=== PATIENT | female | born 1985 | race Caucasian/White ===

== ENCOUNTER 2018-02-25 12:41 | Emergency (ER) | payer MEDICAID, SELFPAY ==
[2018-02-25] VITALS (29 sets, daily range): BP systolic 110–160; BP diastolic 63–100; PULSE 60–94; RESP 0–22; TEMP 37.2; O2SAT 95–99
[2018-02-25 13:53] LABS: Abs Immature Grans 0.01 k/cumm (0.0-0.09); Absolute Basophil Count 0.05 k/cumm (0.0-0.2); Absolute Eosinophil Count 0.38 k/cumm (0.0-0.7); Absolute Lymphocyte Count 3.29 k/cumm (1.2-3.4); Absolute Monocyte Count 0.63 k/cumm (0.11-0.7); Basophils % 0.6; Eosinophils % 4.7; HCT 40.3 % (36.0-46.0); HGB 14.1 g/dL (12.0-15.5); Immature Grans % 0.1; Lymphocytes % 40.3; Mean Corpuscular Hemoglobin 31.4 pg (27.0-33.0); Mean Corpuscular Volume 89.8 fL (80-95); Monocytes % 7.7; Neutrophils % 46.6; Platelet Count 232 x1000/uL (130-400); RBC 4.49 m/cumm (4.00-5.20); RBC Distribution Width 12.7 % (11.7-14.6); White Blood Cell Count 8.16 k/cumm (4.4-10.8)
[2018-02-25 14:09] LABS: ALT 22 U/L (12-78); AST 12 U/L (15-37); Albumin 3.8 g/dL (3.4-5.0); Alkaline Phosphatase 44 U/L (46-116); Anion Gap 5.5 mmol/L (3-11); BUN 11 mg/dL (7-18); Bilirubin, Total 0.3 mg/dL (0.2-1.0); CO2 25.5 mmol/L (21.0-32.0); CREATININE 0.75 mg/dL (0.55-1.02); Calcium 8.7 mg/dL (8.5-10.1); Chloride 107 mmol/L (98-107); Glucose 97 mg/dL (70-100); Magnesium 1.8 mg/dL (1.8-2.4); Potassium 3.5 mmol/L (3.5-5.1); Sodium 138 mmol/L (136-145); Total Protein 7.4 g/dL (6.4-8.2)
[2018-02-25 14:12] LABS: Troponin I < 0.02 ng/mL (0.00-0.06)
[2018-02-25 14:27] LABS: D-Dimer 353 ng/mlFEU (<500)
--- NOTE | 2018-02-25 15:07 | ED.GENADUL_ITS ---
Discharge Plan Discharge Details Chief Complaint: GenMedical Clinical Impression: Cervical strain, Strain of thoracic region, Chest wall muscle strain Primary Care Provider: Vera Singleton ED Provider: Rakel Brito Disposition Patient Disposition: HOME Home Meds and New Rx's Prescriptions: New diazepam [Valium] 5 mg tablet 5 mg PO TID PRN (Reason: muscle spasm) Qty: 10 RF: 0 Continue acetaminophen [Mapap Extra Strength] 500 MG tablet 500 mg PO PRN PRNRF: 0 aspirin 325 MG tablet 325 mg PO PRN PRNRF: 0 Ibuprofen [Ibuprofen Ib] 200 MG Tablet 400 mg PO PRN PRNRF: 0 propranolol 80 mg Capsule,Extended Release 24hr 80 mg PO DAILY RF: 0 Discharge Instructions Instructions: Cervical Strain (ED), Muscle Strain (ED) Additional Instructions: Alternate ice and heat several times daily for 20 minutes at a time. Take Motrin and Tylenol as needed and directed for pain. Take Valium for pain not relieved with Motrin or Tylenol. Do not drive after taking Valium as it can make you drowsy. Follow-up with primary care doctor in 1 week for reevaluation. Return to the emergency department with any worsening or new concerning symptoms. Discharge Data Discharge Date/Time-TO BE ENTERED AT DEPARTURE: 02/25/18 16:40 Discharge Physician: Rakel Brito Medical Decision Making MDM Narrative Medical decision making narrative: 32-year-old female who presents with bilateral shoulder pain for 3 years, worse over the past few days with radiation to her neck down into her upper back bilaterally and around to her left chest. 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 Pain worse with movement of her head and arms. She denies shortness of breath, dizziness, nausea or vomiting. Chest pain is only present with palpation or movement of her head or arms. No DVT or PE risk factors. She has a history of hysterectomy. She intermittently takes propranolol for hypertension, last dose 2 days ago. Vitals on arrival within normal limits. 1305 --EKG noted a rate of 90, sinus, incomplete right bundle branch block but no acute ST depression or elevation. No old EKG to compare. Her lungs are clear to auscultation. She has tenderness to palpation of her bilateral cervical spine, bilateral upper thoracic spine, bilateral trapezius and left anterior chest. There is no rash or evidence of trauma. She is neurovascularly intact. Based on patient's complaint and to expedite process in the ED, labs and chest x -ray ordered on arrival, reviewed and negative. Troponin negative. D-dimer negative. Chest x-ray negative. Patient's presentation appears consistent with acute on chronic musculoskeletal pain, worsened by frequent heavy lifting at work. Dose of Toradol ordered after evaluation and will reassess. Patient drove herself here and cannot get a ride home so we will hold on muscle relaxer dose here and patient is agreeable. 1615 --patient is requesting to leave. Patient feels better after Toradol. At this point as her symptoms have been present for 4 days, I do not see an indication to check a second troponin, and also her symptoms are resolving and she is requesting to leave. We will send home with a prescription for Valium. Patient was instructed to alternate ice and heat, take NSAIDs, and take Valium as needed and directed. She is requesting work note to return to work as she cannot take any time off. She is switching her primary care doctor to her previous primary care doctor in [place]. She is instructed to follow-up with him in 1 week for reevaluation and return to the ER if worse per Lab Data Lab Results 02/25/18 02/25/18 02/25/18 Range/Units 13:20 13:20 13:43 WBC 8.16 (4.4-10.8) k/cumm RBC 4.49 (4.00-5.20) m/cumm Hgb 14.1 (12.0-15.5) g/dL Hct 40.3 (36.0-46.0) % MCV 89.8 (80-95) fL MCH 31.4 (27.0-33.0) pg MCHC 35.0 (32.0-36.0) g/dL RDW 12.7 (11.7-14.6) % Plt Count 232 (130-400) x1000/uL MPV 10.0 (8.0-11.0) fL Immature Gran % 0.1 Neutrophils % 46.6 Lymphocytes % 40.3 Monocytes % 7.7 Eosinophils % 4.7 Basophils % 0.6 Absolute Neutrophils 3.80 (1.2-6.7) k/cumm Absolute Lymphocytes 3.29 (1.2-3.4) k/cumm Absolute Monocytes 0.63 (0.11-0.7) k/cumm Absolute Eosinophils 0.38 (0.0-0.7) k/cumm Absolute Basophils 0.05 (0.0-0.2) k/cumm D-Dimer 353 (<500) ng/mlFEU Sodium 138 (136-145) mmol/L Potassium 3.5 (3.5-5.1) mmol/L Chloride 107 (98-107) mmol/L Carbon Dioxide 25.5 (21.0-32.0) mmol/L Anion Gap 5.5 (3-11) mmol/L BUN 11 (7-18) mg/dL Creatinine 0.75 (0.55-1.02) mg/dL Estimated GFR/1.73 m2 >= 60.00 (mL/min/1.73m2) Glucose 97 (70-100) mg/dL Calcium 8.7 (8.5-10.1) mg/dL Magnesium 1.8 (1.8-2.4) mg/dL Total Bilirubin 0.3 (0.2-1.0) mg/dL AST 12 L (15-37) U/L ALT 22 (12-78) U/L Alkaline Phosphatase 44 L (46-116) U/L Troponin I < 0.02 (0.00-0.06) ng/mL Total Protein 7.4 (6.4-8.2) g/dL Albumin 3.8 (3.4-5.0) g/dL HPI - General Adult General Mode of arrival: ambulatory . Date/Time Provider Initiated Documentation: 02/25/18 13:14 . Limitations to Documentation: no limitations . Information obtained by: patient . HPI Narrative: Patient is a 33-year-old female who presents with bilateral shoulder pain for 3 years, worse over the past 4 days and associated with neck pain and radiation around to chest. 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 Patient states her neck and upper back pain and bilateral shoulder pain is worse with head movement and specifically to the left side. Patient has been taking Tylenol and Motrin for pain without relief. Last dose 2 days ago. Patient denies difficulty breathing, dizziness, nausea, vomiting. She denies recent travel, recent surgery, leg pain or swelling or oral contraceptive use. She has a history of hysterectomy. Related Data Home Medications Medication Instructions Recorded Confirmed acetaminophen [Mapap Extra 500 mg PO PRN PRN 08/03/13 02/25/18 Strength] Ibuprofen [Ibuprofen Ib] 400 mg PO PRN PRN 12/30/17 02/25/18 aspirin 325 mg PO PRN PRN 12/30/17 02/25/18 propranolol 80 mg PO DAILY 02/25/18 02/25/18 Previous Rx's Medication Instructions Recorded diazepam [Valium] 5 mg PO TID PRN #10 tab 02/25/18 Allergies Allergy/AdvReac Type Severity Reaction Status Date / Time Penicillins Allergy rash/hives Unverified 02/25/18 14:05 gabapentin AdvReac Unverified 02/25/18 14:05 lithium AdvReac Unverified 02/25/18 14:05 General Stated Complaint: GenMedical PIA: 3 Review of Systems Constitutional Denies fever(s) and Denies weakness Eyes Patient Denies blurry vision and denies ENT Denies vertigo, Denies dizziness, Denies sore throat and Denies throat swelling Cardiovascular Denies chest pain at rest, Reports chest pain with activity, Denies diaphoresis , Denies syncope, Denies rapid heart rate and Denies dyspnea Respiratory Denies cough, Denies pain on inspiration and Denies dyspnea Gastrointestinal Denies abdominal pain, Denies diarrhea and Denies vomiting Genitourinary Denies hematuria, Denies dysuria and Denies flank pain Musculoskeletal Denies arthralgias and Denies joint swelling Neurologic Denies behavioral changes, Denies confusion, Denies vertigo, Denies dizziness, Denies syncope, Denies focal weakness and Denies weakness Psychiatric Denies behavioral changes and Denies confusion Allergic/Immunologic Denies throat swelling PFSH Family History Father Diabetes Heart disease Hyperlipidemia Mental disorder Grandmother Diabetes Sister Mental disorder Medical History Abnormal Pap smear Constipation Depression Headache Hypertension Tobacco use Social History Smoking/Tobacco Use Status: Former Tobacco Use Surgical History Ligation of fallopian tube Exam Const General: cooperative, healthy appearing and well hydrated Nutritional Appearance: average body habitus Orientation: alert and awake [facility] Head: normal to inspection Ears: hearing grossly normal bilaterally General nose exam: external nose normal Mouth: moist mucous membranes Eyes Eyelids: eyelids normal Pupils: PERRL EOM: EOM intact bilaterally Neck Neck: normal visual inspection Chest Chest: normal inspection of the chest and tenderness (L anterior chest) Chest/axillae images: 2 1. localized area of tenderness. No rash, lesions, abrasions Resp Effort & Inspection: normal respiratory effort, able to speak in complete sentences, normal respiratory pattern, no audible wheezes, no cough and no respiratory distress Auscultation: clear to auscultation bilaterally Cardio Rate: regular rate Rhythm: regular rhythm Heart Sounds: no murmurs GI Inspection: normal to inspection and obesity Palpation: nontender Auscultation: normal bowel sounds Back/Spine/Pelvis Back: back tenderness (Tenderness to palpation bilateral trapezius and bilateral paraspinal thoracic region.) Cervical Spine: cervical muscular tenderness (Bilateral paraspinal) and pain with cervical ROM Thoracic/Lumbar Spine: thoracic and lumbar spine normal to inspection Skin General skin exam: no rashes or lesions noted Neuro General: alert, awake and no meningeal signs Cognition: normal cognition Speech: speech normal Motor: muscle tone normal throughout Sensory Exam: no sensory deficits noted Extrem General: normal to inspection, full ROM and no edema Psych Appearance: grossly normal Mental Status: mental status grossly normal Speech and Movement: speech and movement normal Attitude: cooperative Thought Process: normal Course Vital Signs Temperature 99.0 F 02/25/18 12:52 Pulse 94 H 02/25/18 12:52 Respiratory Rate 16 02/25/18 12:52 Blood Pressure 160/95 H 02/25/18 12:52 Pulse Oximetry 99 02/25/18 12:52 Temperature 99.0 F 02/25/18 12:52 Pulse 94 H 02/25/18 12:52 Respiratory Rate 16 02/25/18 14:55 Blood Pressure 160/95 H 02/25/18 12:52 Pulse Oximetry 99 02/25/18 12:52 Lab/Test Results Lab/Test Results: Laboratory Tests 02/25/18 02/25/18 02/25/18 13:20 13:20 13:43 WBC 8.16 RBC 4.49 Hgb 14.1 Hct 40.3 MCV 89.8 MCH 31.4 MCHC 35.0 RDW 12.7 Plt Count 232 MPV 10.0 Immature Gran % 0.1 Neutrophils % 46.6 Lymphocytes % 40.3 Monocytes % 7.7 Eosinophils % 4.7 Basophils % 0.6 Absolute Neutrophils 3.80 Absolute Lymphocytes 3.29 Absolute Monocytes 0.63 Absolute Eosinophils 0.38 Absolute Basophils 0.05 D-Dimer 353 Sodium 138 Potassium 3.5 Chloride 107 Carbon Dioxide 25.5 Anion Gap 5.5 BUN 11 Creatinine 0.75 Estimated GFR/1.73 m2 >= 60.00 Glucose 97 Calcium 8.7 Magnesium 1.8 Total Bilirubin 0.3 AST 12 L ALT 22 Alkaline Phosphatase 44 L Troponin I < 0.02 Total Protein 7.4 Albumin 3.8
--- NOTE | 2018-02-25 15:08 | DI.RAD_ITS ---
SYMPTOMS/DIAGNOSIS: CHEST PAIN X 1 WEEK CHEST X-RAY, PA AND LATERAL: Comparison is 10/17/17. The heart size and pulmonary vasculature are within normal limits. The lungs are clear and well expanded. No effusions or pneumothoraces are identified. The bones appear intact. IMPRESSION: No acute pulmonary process.
[2018-02-25] MEDS: Ketorolac 60 MG/2 ML VIAL IM (15:48)
== END 2018-02-25 16:40 | disposition home or self-care (01) ==
PROVIDERS: Emergency Provider Physician Assistant; PCP Nurse Practitioner Family
DX: S16.1XXA Strain of muscle, fascia and tendon at neck level, initial encounter (principal); S29.011A Strain of muscle and tendon of front wall of thorax, initial encounter; S29.012A Strain of muscle and tendon of back wall of thorax, initial encounter; X50.3XXA Overexertion from repetitive movements, initial encounter; Y99.0 Civilian activity done for income or pay; G89.29 Other chronic pain; I10 Essential (primary) hypertension
CPT/HCPCS: 36415; 80053; 93005; 96372; 99285; 71046; 83735; 84484; 85025; 85379; 93010; J1885

== ENCOUNTER 2018-08-09 12:11 | Emergency (ER) | payer MEDICAID, SELFPAY ==
[2018-08-09 12:17] VITALS: BP 155/87; PULSE 92; RESP 16; TEMP 36.7; O2SAT 98
--- NOTE | 2018-08-09 13:57 | W.ED.GENAD ---
Discharge Plan Disposition Patient Disposition: HOME Discharge Details Chief Complaint: Fever Clinical Impression: Influenza A, Adenopathy, cervical Primary Care Provider: Vera Singleton ED Provider: Bimal Rodriguez Home Meds and New Rx's Prescriptions: New oseltamivir [Tamiflu] 75 mg capsule 75 mg PO BID 5 Days Qty: 10 RF: 0 Continued acetaminophen [Mapap Extra Strength] 500 MG tablet 500 mg PO PRN PRNRF: 0 aspirin 325 MG tablet 325 mg PO PRN PRNRF: 0 Ibuprofen [Ibuprofen Ib] 200 MG Tablet 400 mg PO PRN PRNRF: 0 Discharge Instructions Instructions: Lymphadenopathy (ED), Influenza (ED) Additional Instructions: Please take Tamiflu as prescribed. Please drink plenty of fluid and allow for plenty of rest. Please contact your primary care physician to arrange follow-up. If swelling in your neck persist >1 week, timely additional diagnostic testing will be needed. Return to the ER for any worsening or new concerning symptoms. Stand Alone Forms: Work Release Referrals: Vera Singleton [Primary Care Provider] - Discharge Data Discharge Date/Time-TO BE ENTERED AT DEPARTURE: 08/09/18 16:31 Medical Decision Making 33yo f with left neck tender lymphadenopathy and fever since last night, patient has had a few days of sinus congestion, bilateral ear pain, intermittent cough. No signs of focal bacterial infection. Rapid flu testing: positive. Monospot: negative Plan to treat with tamiflu. I explained to patient the absolute need to follow-up with primary care for additional diagnostic testing should neck swelling not improve over the next 1 week. HPI General Mode of arrival: ambulatory. Date/Time Provider Initiated Documentation: 08/09/18 12:41. Limitations to Documentation: no limitations. Information obtained by: patient. HPI Narrative: 33-year-old female smoker here with chief complaint of left neck pain. Patient notes that last night she started to have pain and swelling of her left neck lymph node. Pain has persisted today. She had associated fever last night. She does note some sinus congestion, bilateral ear pain, intermittent cough. No dental pain. Related Data Home Medications Medication Instructions Recorded Confirmed acetaminophen [Mapap Extra 500 mg PO PRN PRN 08/03/13 08/09/18 Strength] Ibuprofen [Ibuprofen Ib] 400 mg PO PRN PRN 12/30/17 08/09/18 aspirin 325 mg PO PRN PRN 12/30/17 08/09/18 oseltamivir [Tamiflu] 75 mg PO BID 5 Days #10 cap 08/09/18 Previous Rx's Medication Instructions Recorded oseltamivir [Tamiflu] 75 mg PO BID 5 Days #10 cap 08/09/18 Allergies Allergy/AdvReac Type Severity Reaction Status Date / Time Penicillins Allergy rash/hives Unverified 08/09/18 12:17 gabapentin AdvReac Unverified 08/09/18 12:17 lithium AdvReac Unverified 08/09/18 12:17 General Stated Complaint: Fever PIA: 4 Review of Systems Constitutional Reports as per HPI, Reports body ache(s) and Reports fever(s) Respiratory Reports cough PFSH Medical History H/O: hysterectomy (Chronic) Abnormal Pap smear Constipation Depression Headache Hypertension Tobacco use Surgical History Ligation of fallopian tube Family History Father Diabetes Heart disease Hyperlipidemia Mental disorder Grandmother Diabetes Sister Mental disorder Social History Smoking and Tabacco status: Current-Occasional alcohol intake: current alcohol intake frequency: a few times a month substance use type: marijuana Exam Const General: cooperative and no acute distress HENMT Head: normocephalic and atraumatic Ears: TM normal on the right and TM normal on the left General nose exam: external nose normal Mouth: moist mucous membranes Teeth and gingiva: poor dentition Throat: posterior oropharynx normal, uvula midline and no peritonsillar masses Eyes Conjunctivae: normal conjunctivae Sclera: normal sclerae EOM: EOM intact bilaterally Neck Neck: trachea midline and supple Lymphatic: lymphadenopathy (Left anterior cervical) Resp Auscultation: clear to auscultation bilaterally, no rales, no rhonchi and no wheezes Cardio Jugular venous pressure: no JVD Rate: regular rate and not tachycardic Rhythm: regular rhythm GI Palpation: soft, no hepatosplenomegaly, not firm, no guarding, no masses, not rigid and nontender Skin General skin exam: no rashes or lesions noted Neuro General: alert, awake, oriented x3 and tone normal Course Vital Signs Temperature 36.7 C 08/09/18 12:17 Pulse 92 H 08/09/18 12:17 Respiratory Rate 16 08/09/18 12:17 Blood Pressure 155/87 H 08/09/18 12:17 Pulse Oximetry 98 08/09/18 12:17 Temperature 36.7 C 08/09/18 12:17 Temperature Source Temporal Artery Scan 08/09/18 12:17 Pulse 92 H 08/09/18 12:17 Respiratory Rate 16 08/09/18 12:17 Respiratory Effort 08/09/18 12:17 Blood Pressure 155/87 H 08/09/18 12:17 Blood Pressure Position Sitting 08/09/18 12:17 Pulse Oximetry 98 08/09/18 12:17 Oxygen Delivery Method Room Air 08/09/18 12:17 Oxygen Flow Rate 0 08/09/18 12:17
--- NOTE | 2018-08-09 14:00 | ED.GENADUL_ITS ---
Discharge Plan Disposition Patient Disposition: HOME Discharge Details Chief Complaint: Fever Clinical Impression: Influenza A, Adenopathy, cervical Primary Care Provider: Vera Singleton ED Provider: Bimal Rodriguez Home Meds and New Rx's Prescriptions: New oseltamivir [Tamiflu] 75 mg capsule 75 mg PO BID 5 Days Qty: 10 RF: 0 Continued acetaminophen [Mapap Extra Strength] 500 MG tablet 500 mg PO PRN PRNRF: 0 aspirin 325 MG tablet 325 mg PO PRN PRNRF: 0 Ibuprofen [Ibuprofen Ib] 200 MG Tablet 400 mg PO PRN PRNRF: 0 Discharge Instructions Instructions: Lymphadenopathy (ED), Influenza (ED) Additional Instructions: Please take Tamiflu as prescribed. Please drink plenty of fluid and allow for plenty of rest. Please contact your primary care physician to arrange follow-up. If swelling in your neck persist >1 week, timely additional diagnostic testing will be needed. Return to the ER for any worsening or new concerning symptoms. Stand Alone Forms: Work Release Referrals: Vera Singleton [Primary Care Provider] - Discharge Data Discharge Date/Time-TO BE ENTERED AT DEPARTURE: 08/09/18 16:31 Medical Decision Making 33yo f with left neck tender lymphadenopathy and fever since last night, patient has had a few days of sinus congestion, bilateral ear pain, intermittent cough. No signs of focal bacterial infection. Rapid flu testing: positive. Monospot: negative Plan to treat with tamiflu. I explained to patient the absolute need to follow-up with primary care for additional diagnostic testing should neck swelling not improve over the next 1 week. HPI General Mode of arrival: ambulatory . Date/Time Provider Initiated Documentation: 08/09/18 12:41 . Limitations to Documentation: no limitations . Information obtained by: patient . HPI Narrative: 33-year-old female smoker here with chief complaint of left neck pain. Patient notes that last night she started to have pain and swelling of her left neck lymph node. Pain has persisted today. She had associated fever last night. She does note some sinus congestion, bilateral ear pain, intermittent cough. No dental pain. Related Arnaud a Home Medications Medication Instructions Recorded Confirmed acetaminophen [Mapap Extra 500 mg PO PRN PRN 08/03/13 08/09/18 Strength] Ibuprofen [Ibuprofen Ib] 400 mg PO PRN PRN 12/30/17 08/09/18 aspirin 325 mg PO PRN PRN 12/30/17 08/09/18 oseltamivir [Tamiflu] 75 mg PO BID 5 Days #10 cap 08/09/18 Previous Rx's Medication Instructions Recorded oseltamivir [Tamiflu] 75 mg PO BID 5 Days #10 cap 08/09/18 Allergies Allergy/AdvReac Type Severity Reaction Status Date / Time Penicillins Allergy rash/hives Unverified 08/09/18 12:17 gabapentin AdvReac Unverified 08/09/18 12:17 lithium AdvReac Unverified 08/09/18 12:17 General Stated Complaint: Fever PIA: 4 Review of Systems Constitutional Reports as per HPI, Reports body ache(s) and Reports fever(s) Respiratory Reports cough PFSH Medical History H/O: hysterectomy (Chronic) Abnormal Pap smear Constipation Depression Headache Hypertension Tobacco use Surgical History Ligation of fallopian tube Family History Father Diabetes Heart disease Hyperlipidemia Mental disorder Grandmother Diabetes Sister Mental disorder Social History Smoking and Tabacco status: Current-Occasional alcohol intake: current alcohol intake frequency: a few times a month substance use type: marijuana Exam Const General: cooperative and no acute distress HENMT Head: normocephalic and atraumatic Ears: TM normal on the right and TM normal on the left General nose exam: external nose normal Mouth: moist mucous membranes Teeth and gingiva: poor dentition Throat: posterior oropharynx normal, uvula midline and no peritonsillar masses Eyes Conjunctivae: normal conjunctivae Sclera: normal sclerae EOM: EOM intact bilaterally Neck Neck: trachea midline and supple Lymphatic: lymphadenopathy (Left anterior cervical) Resp Auscultation: clear to auscultation bilaterally, no rales, no rhonchi and no wheezes Cardio Jugular venous pressure: no JVD Rate: regular rate and not tachycardic Rhythm: regular rhythm GI Palpation: soft, no hepatosplenomegaly, not firm, no guarding, no masses, not r igid and nontender Skin General skin exam: no rashes or lesions noted Neuro General: alert, awake, oriented x3 and tone normal Course Vital Signs Temperature 36.7 C 08/09/18 12:17 Pulse 92 H 08/09/18 12:17 Respiratory Rate 16 08/09/18 12:17 Blood Pressure 155/87 H 08/09/18 12:17 Pulse Oximetry 98 08/09/18 12:17 Temperature 36.7 C 08/09/18 12:17 Temperature Source Temporal Artery Scan 08/09/18 12:17 Pulse 92 H 08/09/18 12:17 Respiratory Rate 16 08/09/18 12:17 Respiratory Effort 08/09/18 12:17 Blood Pressure 155/87 H 08/09/18 12:17 Blood Pressure Position Sitting 08/09/18 12:17 Pulse Oximetry 98 08/09/18 12:17 Oxygen Delivery Method Room Air 08/09/18 12:17 Oxygen Flow Rate 0 08/09/18 12:17
[2018-08-09 14:15] LABS: Mono Screening Negative (Negative)
== END 2018-08-09 16:31 | disposition home or self-care (01) ==
PROVIDERS: Emergency Provider Student in an Organized Health Care Education/Training Program; PCP Nurse Practitioner Family
DX: R59.0 Localized enlarged lymph nodes (principal); H92.03 Otalgia, bilateral; R05 Cough; J10.1 Influenza due to other identified influenza virus with other respiratory manifestations; I10 Essential (primary) hypertension
CPT/HCPCS: 87449; 99283; 86308

== ENCOUNTER 2018-12-09 08:13 | Emergency (ER) | payer MEDICAID, SELFPAY ==
[2018-12-09 08:22] VITALS: BP 143/98; PULSE 87; RESP 20; TEMP 36.8; O2SAT 98
--- NOTE | 2018-12-09 08:34 | DI.RAD_ITS ---
SYMPTOM/DIAGNOSIS: COUGH PA AND LATERAL CHEST: The lungs are free of infiltrate. Incidental note is made of an azygous lobe. There is no pleural effusion. The cardiovascular structures are intact. SUMMARY: No evidence of acute cardiopulmonary disease.
--- NOTE | 2018-12-09 08:49 | ED.GENADUL_ITS ---
Discharge Plan Disposition Patient Disposition: HOME Condition: Stable Discharge Details Chief Complaint: RespSymp Clinical Impression: Bronchitis, URI (upper respiratory infection) Primary Care Provider: Vera Singleton ED Provider: Zeeshan Vergara Home Meds and New Rx's Prescriptions: New prednisone 50 mg tablet 50 mg PO DAILY Qty: 3 RF: 0 benzonatate 200 mg capsule 200 mg PO TID PRN (Reason: cough) Qty: 30 RF: 0 Continued acetaminophen [Mapap Extra Strength] 500 MG tablet 500 mg PO PRN PRNRF: 0 aspirin 325 MG tablet 325 mg PO PRN PRNRF: 0 Ibuprofen [Ibuprofen Ib] 200 MG Tablet 400 mg PO PRN PRNRF: 0 Discharge Instructions Instructions: Upper Respiratory Infection (ED), Acute Bronchitis (ED) Additional Instructions: Please stay well-hydrated and get plenty of rest during illness. Take medication as prescribed and if you develop a fever, worsening symptoms, or any further concerns feel free to return to the emergency department for reassessment. Otherwise if not improving by next week please follow-up with your primary care provider for recheck of your symptoms Stand Alone Forms: Work Release Referrals: Vera Singleton [Primary Care Provider] - 5 days (If not improving) Discharge Data Discharge Date/Time-TO BE ENTERED AT DEPARTURE: 12/09/18 09:36 Medical Decision Making Patient reports approximately 1 week ago she had typical cold symptoms with nasal congestion, ear discomfort, sore throat, mild cough. And over the last 3 days she has had worsening of symptoms including cough that is kept her awake at night. Patient denies any fever, rash, or chills. Physical exam shows clear lung calle throughout, stable vital signs without tachycardia, hypoxia, and patient is afebrile. HEENT exam is otherwise unremarkable nondiagnostic. Patient is a smoker and does state history of previous episode similar that were bronchitis. She does state that she is used in her inhaler with minimal effect. Plan to do chest x-ray to exclude pneumonia but I feel that patient's symptoms are highly suspicious of bronchitis given unremarkable exam no focal findings within the assessment of the lungs. Review of radiological imaging shows no acute findings. I do feel that patient had right upper respiratory tract infection that is now become bronchitis and that she would benefit from inhaler with a spacer along with steroid burst and Tessalon Perles. Patient was agreeable to this plan of care but return precautions were discussed. Patient otherwise to follow-up with primary care in 1 week if not improving. After discussion of diagnosis and plan of care patient has no further needs, questions, or concerns and states clear understanding to return to the emergency department for any worsening symptoms. HPI General Mode of arrival: ambulatory . Date/Time Provider Initiated Documentation: 12/09/18 08:26 . Limitations to Documentation: no limitations . Information obtained by: patient and RN notes reviewed . History of Present Illness 33 year old F presents to the emergency department with the chief complaint of Cough, shortness of breath, described as moderate and similar to prior episodes, Quality is described as aching, and is localized to the chest. Patient reports no radiation. Patient started experiencing this week(s) (1) and it has been constant. Other factors that worsen symptoms (Coughing) . Patient did receive the following treatments prior to arrival, other (Inhaler) Related Data Home Medications Medication Instructions Recorded Confirmed acetaminophen [Mapap Extra 500 mg PO PRN PRN 08/03/13 12/09/18 Strength] Ibuprofen [Ibuprofen Ib] 400 mg PO PRN PRN 12/30/17 12/09/18 aspirin 325 mg PO PRN PRN 12/30/17 12/09/18 benzonatate 200 mg PO TID PRN #30 cap 12/09/18 prednisone 50 mg PO DAILY #3 tab 12/09/18 Previous Rx's Medication Instructions Recorded benzonatate 200 mg PO TID PRN #30 cap 12/09/18 prednisone 50 mg PO DAILY #3 tab 12/09/18 Allergies Allergy/AdvReac Type Severity Reaction Status Date / Time Penicillins Allergy rash/hives Unverified 12/09/18 08:24 gabapentin AdvReac Unverified 12/09/18 08:24 lithium AdvReac Unverified 12/09/18 08:24 General Stated Complaint: RespSymp PIA: 3 Review of Systems Constitutional Reports body ache(s), Denies chills, Denies fever(s), Denies headache(s) and Reports malaise Eyes Denies eye discharge ENT Reports as per HPI, Denies ear discharge, Denies otalgia, Denies headache(s), Reports nasal congestion, Denies neck pain, Reports sore throat and Denies throat swelling Cardiovascular Denies chest pain and Reports dyspnea Respiratory Reports cough, Reports pain with cough and Reports dyspnea Musculoskeletal Denies joint swelling and Denies neck pain Integumentary/Breasts Denies rash Neurologic Denies headache(s) Allergic/Immunologic Denies throat swelling [facility] Medical History H/O: hysterectomy (Chronic) Abnormal Pap smear Constipation Depression Headache Hypertension Tobacco use Surgical History Ligation of fallopian tube Family History Father Diabetes Heart disease Hyperlipidemia Mental disorder Grandmother Diabetes Sister Mental disorder Social History Smoking/Tobacco Use Status: Current every day Alcohol Intake: current Alcohol Intake frequency: a few times a month Drug use: Daily Substance use type: marijuana Do you feel safe at home: Yes Do you feel safe in your relationship?: Yes Exam Const General: cooperative, comfortable and no acute distress Orientation: alert and awake HENMT Head: normal to inspection, normocephalic and atraumatic Ears: hearing grossly normal bilaterally and TM's normal bilaterally General nose exam: external nose normal Mouth: oral mucosae normal, no drooling, no muffled voice and no trismus Throat: posterior oropharynx normal Neck Neck: normal visual inspection, full ROM, no lymphadenopathy, no meningeal signs, trachea midline and supple Resp Effort & Inspection: normal respiratory effort, able to speak in complete sentences and cough Quality of cough: dry Auscultation: clear to auscultation bilaterally Cardio Rate: regular rate Rhythm: regular rhythm Heart Sounds: S1 normal, S2 normal, normal S1 and S2, no click, no gallops, no murmurs and no rubs Skin General skin exam: no rashes or lesions noted and dry skin (warm) Neuro General: alert, awake, oriented x3, gait normal and moves all extremities Course Vital Signs Temperature 36.8 C 12/09/18 08:22 Pulse 87 12/09/18 08:22 Respiratory Rate 20 12/09/18 08:22 Blood Pressure 143/98 H 12/09/18 08:22 Pulse Oximetry 98 12/09/18 08:22 Temperature 36.8 C 12/09/18 08:22 Temperature Source Temporal Artery Scan 12/09/18 08:22 Pulse 87 12/09/18 08:22 Respiratory Rate 20 12/09/18 08:22 Respiratory Effort Non-Labored 12/09/18 08:24 Respiratory Depth Normal 12/09/18 08:24 Blood Pressure 143/98 H 12/09/18 08:22 Blood Pressure Position Sitting 12/09/18 08:22 Pulse Oximetry 98 12/09/18 08:22 Oxygen Delivery Method Room Air 12/09/18 08:22 Oxygen Flow Rate 0 12/09/18 08:22 Pain Level 8 12/09/18 08:22
[2018-12-09] MEDS: predniSONE 20 MG TAB 60 MG PO (09:46)
[2018-12-09] MEDS: Albuterol HFA 8 GM 60 PUFF INH IH (09:47)
[2018-12-09] MEDS: Inhaler, Assist Device 1 EACH MC (09:47)
[2018-12-09 09:54] VITALS: BP 143/98; PULSE 87; RESP 20; TEMP 36.8; O2SAT 98
== END 2018-12-09 09:36 | disposition home or self-care (01) ==
PROVIDERS: Emergency Provider Nurse Practitioner Family; PCP Nurse Practitioner Family
DX: J20.9 Acute bronchitis, unspecified (principal)
CPT/HCPCS: 99283; 71046; J7512

== ENCOUNTER 2019-02-17 14:13 | Emergency (ER) | payer MEDICAID, SELFPAY ==
[2019-02-17 14:22] VITALS: BP 130/83; PULSE 83; RESP 16; TEMP 36.7; O2SAT 96
[2019-02-17 14:43] LABS: Bilirubin Small (Negative); Blood Trace-lysed (Negative); Clarity Clear (Clear); Glucose Negative (Negative); Ketones Negative (Negative); Leukocyte Esterase Negative (Negative); Nitrite Negative (Negative); Specific Gravity >= 1.030 (1.005-1.025); Urobilinogen 0.2 EU/dL (Up TO 0.2)
[2019-02-17 15:04] LABS: Bacteria Moderate HPF (Negative); C & S Indicated? No/Sq. Contamination; Casts Negative LPF (Negative); Crystals Negative HPF (Negative); Epithelial Cells Moderate HPF (Negative); Mucus Heavy (Negative); Other Cells Negative (Negative); RBC 0-2 (0-2)
--- NOTE | 2019-02-17 15:08 | ED.GENADUL_ITS ---
Discharge Plan Disposition Patient Disposition: HOME Condition: Good Discharge Details Chief Complaint: Urinary Clinical Impression: UTI (urinary tract infection) Primary Care Provider: Vera Singleton ED Provider: Panda Acharya Home Meds and New Rx's Prescriptions: New cephalexin [Keflex] 500 mg capsule 500 mg PO QID 10 Days Qty: 40 RF: 0 No Action phenazopyridine [Pyridium] 100 mg Tablet PO PRN PRNRF: 0 Discharge Instructions Instructions: Urinary Tract Infection in Women (ED) Additional Instructions: Your urinalysis is concerning for urinary tract infection. If your symptoms do not improve with the antibiotic please return for reevaluation as there may be other underlying etiologies causing her symptoms. If you notice any worsening of your symptoms, or any new symptoms such as vomiting, diarrhea, fever, chills, shortness of breath, chest pain, numbness, weakness, or fainting , please return immediately to the emergency department for reevaluation. Please follow up with your primary care provider as soon as possible for reassessment and reevaluation. As always, it was a pleasure participating in your medical care today. Referrals: Vera Singleton [Primary Care Provider] - Discharge Data Discharge Date/Time-TO BE ENTERED AT DEPARTURE: 02/17/19 15:30 Medical Decision Making This is a pleasant 34-year-old female who presents today for which she describes as urinary tract infection symptoms. Patient states that for the last 2 weeks she has had mild burning and frequency with urination however it is notably increased in the last 24 to 48 hours. She denies fever or chills but does admit to mild right-sided flank pain that is intermittent, as well as very mild intermittent right lower quadrant pain. She denies any nausea vomiting or change in her bowel movements. She has been eating and drinking well. She states that the symptoms are identical to previous UTI symptoms that she had in the past. Physical exam demonstrates minimal tenderness in the right lower quadrant, no significant flank or CVA tenderness. Vital signs are notably reassuring. She is afebrile. Abdominal exam is inconsistent with an acute surgical abdomen. Urinalysis was performed which revealed mild bacteria, mild WBCs, no significant RBCs, negative nitrite and leuk esterase. Urinalysis results are certainly inconsistent with pyelonephritis, and slightly atypical for UTI. Because of this I did discuss with the patient my recommendations and wishes to look further with IV, labs, as well as a CT scan of her abdomen with the tenderness in her right lower quadrant, albeit mild. Patient made it clear that she does not want any additional imaging or labs at this time. She feels confident that her symptoms are secondary to a urinary tract infection. I did discuss my concern that sometimes the symptoms can look similar to a urinary tract infection but actually be secondary to an appendicitis or other acute abdominal pathology. She does understand this, but insists that she otherwise feels fine does not want any additional further work-up or imaging. I discussed with her the potential of missing a life-threatening or life altering or debilitating etiology without proper work-up, and she states that she understands, and agrees to accept this risk. Respecting the patient's wishes and with the patient demonstrating understanding of the risks and benefits of her decision she will be discharged home. We will give her a prescription for Keflex for suspected clinical urinary tract infection. Had a long discussion with her regarding red flags which to return and that anytime she come back if she wants for completion of her work-up. I have extensively reviewed the treatment plan and discharge instructions with the patient. I have addressed all patient concerns at this time. The patient was made aware of what symptoms to monitor for that would warrant a return to the emergency department. Discussed the plan with the patient, they demonstrate verbal understanding and agreement with our assessment and plan at this time. HPI General Date/Time Provider Initiated Documentation: 02/17/19 14:26 . HPI Narrative: This is a 34-year-old female with no significant past medical history aside for a hysterectomy who presents today for evaluation of suspected UTI. Patient states that for the last 2 weeks she has had intermittent burning when she urinates, increased frequency, however over the last 24 to 48 hours symptoms have notably increased, with an occasional achiness in her back. She admits to fatigue, but denies any fever or chills. She denies any nausea vomiting or significant change in her stools. She has been eating and drinking well. She has taken [id number] Pyridium this is only helped her symptoms slightly. Patient states that her symptoms feel identical to previous UTIs she has had in the past. She states that she has waited so long secondary to work and family issues. Patient does admit to mild abdominal pain and mild flank discomfort occasionally on the right. She states that this is not severe. She denies any other complaints or modifying factors. Related Data Home Medications Medication Instructions Recorded Confirmed cephalexin [Keflex] 500 mg PO QID 10 Days #40 cap 02/17/19 phenazopyridine [Pyridium] PO PRN PRN 02/17/19 Previous Rx's Medication Instructions Recorded cephalexin [Keflex] 500 mg PO QID 10 Days #40 cap 02/17/19 Allergies Allergy/AdvReac Type Severity Reaction Status Date / Time gabapentin AdvReac Unverified 02/17/19 14:26 lithium AdvReac Unverified 02/17/19 14:26 General Stated Complaint: Urinary PIA: 3 Review of Systems Review of Systems All systems reviewed & are unremarkable except as noted in HPI and below PFSH Social History Smoking/Tobacco Use Status: Current every day Tobacco Type: cigarettes Alcohol Intake: never Drug use: Daily Substance use type: marijuana Do you feel safe at home: Yes Do you feel safe in your relationship?: Yes Exam Narrative Exam Narrative: 1.Const: Well-nourished, Well-developed, appearing stated age 2.Eyes: PERRL, no conjunctival injection, and symmetrical lids. 3.ENT: Atraumatic external nose and ears. Moist MM. Neck: Symmetric, trachea midline, No thyromegaly. 4.CVS: +S1/S2, No murmurs or gallops. Peripheral pulses 2+ and equal in all extremities. Brisk capillary refill in all extremities. 5.RESP: Unlabored respiratory effort. Clear to auscultation bilaterally. No wheezes rales or rhonchi 6.GI: Soft, Nondistended, No hepatosplenomegaly. No guarding or rebound. No significant flank or CVA tenderness. Minimal tenderness in the right lower quadrant. No guarding or rebound. Negative Ceja sign. Mild suprapubic tenderness. No pelvic tenderness. 7.MSK: Normocephalic/Atraumatic, Extremities w/o deformity or ttp No cyanosis or clubbing, Normal movement of all extremities 8.Skin: Warm, Dry. No rashes or lesions. 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 Sensation grossly intact, no focal neurolo gic deficits. 10.Psych: (AAO) x3. Appropriate mood and affect Course Vital Signs Temperature 36.7 C 02/17/19 14:22 Pulse 83 02/17/19 14:22 Respiratory Rate 16 02/17/19 14:22 Blood Pressure 130/83 02/17/19 14:22 Pulse Oximetry 96 02/17/19 14:22 Temperature 36.7 C 02/17/19 14:22 Temperature Source Temporal Artery Scan 02/17/19 14:22 Pulse 83 02/17/19 14:22 Respiratory Rate 16 02/17/19 14:22 Respiratory Effort 02/17/19 14:28 Blood Pressure 130/83 02/17/19 14:22 Pulse Oximetry 96 02/17/19 14:22 Oxygen Delivery Method Room Air 02/17/19 14:22 Oxygen Flow Rate 0 02/17/19 14:22 Pain Level 8 02/17/19 14:22 Lab/Test Results Lab/Test Results: Laboratory Tests Range/Units 02/17/19 14:30 Urine Color (Yellow) Yellow Urine Clarity (Clear) Clear Urine pH (5-8) 6.0 Ur Specific [place] (1.005-1.025) >= 1.030 H Urine Protein (Negative) mg/dL 30 H Urine Ketones (Negative) mg/dL Negative Urine Blood (Negative) Trace-lysed H Urine Nitrite (Negative) Negative Urine Bilirubin (Negative) Small H Urine Urobilinogen (Up TO 0.2) EU/dL 0.2 Ur Leukocyte Esterase (Negative) Negative Urine RBC (0-2) 0-2 Urine WBC (0-5) HPF 5-10 Ur Epithelial Cells (Negative) HPF Moderate Urine Crystals (Negative) HPF Negative Urine Bacteria (Negative) HPF Moderate Urine Casts (Negative) LPF Negative Urine Mucus (Negative) Heavy Urine Other (Negative) Negative Ur Culture Indicated? No/sq. contamination Urine Glucose (Negative) mg/dL Negative
[2019-02-17] MEDS: Acetaminophen 500 MG TAB 1000 MG PO (15:10)
[2019-02-17] MEDS: Cephalexin 500 MG CAP PO (15:27)
[2019-02-17] MEDS: Ibuprofen 800 MG TAB PO (15:27)
== END 2019-02-17 15:30 | disposition home or self-care (01) ==
PROVIDERS: Emergency Provider Student in an Organized Health Care Education/Training Program; PCP Nurse Practitioner Family
DX: N39.0 Urinary tract infection, site not specified (principal); R10.31 Right lower quadrant pain; Z53.29 Procedure and treatment not carried out because of patient's decision for other reasons
CPT/HCPCS: 99283; 81003; 81015

== ENCOUNTER 2019-05-23 19:49 | Emergency (ER) | payer MEDICAID, SELFPAY ==
[2019-05-23 20:00] VITALS: BP 132/99; PULSE 82; RESP 16; TEMP 37.2; O2SAT 98
[2019-05-23 20:10] VITALS: RESP 16
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
--- NOTE | 2019-05-23 21:36 | NUR.NOTE ---
Sling to left arm. Educated on use. Discharge instructions reviewed with LUISITO iVdal. Encouraged to return for further imaging if needed. Ambulated to exit with steady gait.
== END 2019-05-23 21:35 | disposition home or self-care (01) ==
PROVIDERS: Emergency Provider Physician Assistant; PCP Nurse Practitioner Family
DX: S40.012A Contusion of left shoulder, initial encounter (principal); M25.532 Pain in left wrist; V48.0XXA Car driver injured in noncollision transport accident in nontraffic accident, initial encounter
CPT/HCPCS: 99284; 73000; 73030; 73110; 73130; 99283; L3650

== ENCOUNTER 2020-04-06 20:47 | Outpatient (REF) | payer MEDICAID, SELFPAY ==
[2020-04-06 19:14] LABS: HCT 46.6 % (36.0-46.0); HGB 15.7 g/dL (11.2-15.7); MCH 31.6 pg (27.0-33.0); MCHC 33.7 % (32.0-36.0); MCV 93.8 fL (80-95); MPV 10.6 fL (8.0-11.0); Platelet Count 303 10^3/uL (130-400); RBC 4.97 10^6/uL (3.93-5.22); RDW 12.7 % (11.7-14.6); RDW-SD 43.9 fL; WBC 10.55 10^3/uL (4.4-10.8)
[2020-04-06 19:38] LABS: BUN 10 mg/dL (7-18); CREATININE 0.77 mg/dL (0.55-1.02); Calcium 9.1 mg/dL (8.5-10.1); Chloride 104 mmol/L (98-107); Glucose 102 mg/dL (74-106); Potassium 4.5 mmol/L (3.5-5.1); Sodium 139 mmol/L (136-145); TSH 1.25 uIU/mL (0.36-3.74)
[2020-04-06 19:53] LABS: Vitamin D 25 Total 12.1 ng/ml (30-100)
== END 2020-04-06 21:07 ==
LOC: NCHCN 20:47
PROVIDERS: PCP Nurse Practitioner Family; Visit Provider Nurse Practitioner Family
DX: R53.83 Other fatigue (principal); E55.9 Vitamin D deficiency, unspecified; F32.9 Major depressive disorder, single episode, unspecified; R03.0 Elevated blood-pressure reading, without diagnosis of hypertension
CPT/HCPCS: 80048; 82306; 85027; 84443

== ENCOUNTER 2020-10-12 11:54 | Outpatient (REF) | payer MEDICAID, SELFPAY ==
[2020-10-12 15:30] LABS: Abs Immature Grans 0.09 10^3/uL (0.0-0.06); Absolute Basophil Count 0.08 10^3/uL (0.0-0.2); Absolute Eosinophil Count 0.44 10^3/uL (0.0-0.7); Absolute Lymphocyte Count 2.65 10^3/uL (1.2-3.4); Absolute Monocyte Count 0.58 10^3/uL (0.1-0.8); Absolute Neutrophil Count 5.59 10^3/uL (1.2-6.7); Basophils % 0.8; Eosinophils % 4.7; HCT 40.1 % (36.0-46.0); HGB 13.7 g/dL (11.2-15.7); Lymphocytes % 28.1; MCH 32.1 pg (27.0-33.0); MCHC 34.2 % (32.0-36.0); MCV 93.9 fL (80-95); Monocytes % 6.2; Neutrophils % 59.2; Nucleated RBC 0 %; Platelet Count 311 10^3/uL (130-400); RBC 4.27 10^6/uL (3.93-5.22); RDW 12.9 % (11.7-14.6); RDW-SD 44.3 fL; WBC 9.43 10^3/uL (4.4-10.8)
[2020-10-12 15:33] LABS: ESR 3 mm//hr (0-20)
[2020-10-12 16:19] LABS: Anion Gap 7.6 mmol/L (3-11); BUN 13 mg/dL (7-18); CO2 26.4 mmol/L (21.0-32.0); CREATININE 0.9 mg/dL (0.55-1.02); Calcium 9.5 mg/dL (8.5-10.1); Chloride 103 mmol/L (98-107); Glucose 95 mg/dL (74-106); Potassium 4.3 mmol/L (3.5-5.1); Sodium 137 mmol/L (136-145)
[2020-10-12 16:37] LABS: Vitamin D 25 Total 10.3 ng/mL (30-100)
== END 2020-10-12 11:55 | disposition home or self-care (01) ==
LOC: NCHCN 11:54
PROVIDERS: PCP Nurse Practitioner Family; Visit Provider Nurse Practitioner Family
DX: R10.9 Unspecified abdominal pain (principal); R07.89 Other chest pain; R31.9 Hematuria, unspecified
CPT/HCPCS: 80048; 82306; 85652; 85025

== ENCOUNTER 2024-06-19 09:37 | Emergency (ER) | payer MEDICAID, SELFPAY ==
[2024-06-19 09:42] VITALS: BP 176/137; PULSE 94; RESP 18; TEMP 36.8; O2SAT 97
[2024-06-19 09:46] VITALS: BP 176/137; PULSE 94; RESP 18; TEMP 36.8; O2SAT 97
--- NOTE | 2024-06-19 10:00 | DI.RAD_ITS ---
Exam(s) XR CHEST 2V PA LATERAL EXAM: XR CHEST 2V PA LATERAL CLINICAL HISTORY: cough TECHNIQUE: 2D digital imaging was performed of the chest. Two images were obtained. PA and lateral views were obtained. COMPARISON: CR XR CHEST 2V PA LATERAL from 12/09/2018 FINDINGS: Incidental note is made of an azygos lobe which is a normal variant. MEDIASTINUM: Normal. HEART: Normal. PULMONARY VASCULATURE: Normal. LUNGS: Clear. PLEURAL SPACE: No pleural effusion or pneumothorax. BONE:Within normal limits for the patient's age. OTHER FINDINGS:Normal. IMPRESSION: No acute pulmonary findings. DATA REPOSITORY: RADIATION DOSE DELIVERED:
[2024-06-19] MEDS: Dexamethasone 4 MG TAB 8 MG PO (10:19)
[2024-06-19] MEDS: Albuterol HFA 8 GM 60 PUFF INH IH (10:19)
[2024-06-19] MEDS: Inhaler, Assist Device 1 EACH MC (10:20)
--- NOTE | 2024-06-19 10:27 | ED.GENADUL_ITS ---
Discharge Plan Disposition Patient Disposition: Home Condition: Stable Discharge Details Clinical Impression: URI with cough and congestion Primary Care Provider: Unknown,Unknown ED Provider: Horacio Garcia Home Meds and New Rx's Prescriptions: New azithromycin 250 mg tablet See Rx Instructions .ROUTE .COMPLEX Qty: 6 0RF Rx Instructions: For 250 mg dose pack: take 500 mg today (day 1), then 250 mg for 4 days (days 2-5) benzonatate 100 mg capsule 100 mg PO TID PRN (Reason: cough) Qty: 30 0RF promethazine 6.25 mg/5 mL syrup 12.5 mg PO Q6H PRN (Reason: cough) Qty: 120 0RF Discharge Instructions Instructions: Upper Respiratory Infection ED Additional Instructions: Your workup today is concerning for an atypical pneumonia. You will be treated with antibiotics. Please take the complete course of the medicine. You were given a dose of steroids and an inhaler in the emergency department. Please continue the inhaler 2 puffs every 4 hours with a spacer. This will help with your cough Additional cough medication was sent to the pharmacy to take as needed [id number] Claritin and Mucinex can be helpful with your symptoms Please make sure to be drinking lots of water and follow-up with your PCP if your symptoms not improving. Stand Alone Forms: Work Release HPI General Date/Time Provider Initiated Documentation: 06/19/24 10:02 . Limitations to Documentation: no limitations . Information obtained by: patient . HPI Narrative: 39-year-old female with past medical history of tobacco abuse presents for evaluation of 1 week of URI symptoms. Has had nasal congestion, nasal drainage and nonproductive cough. She reports subjective fever and chills. She reports discomfort with coughing in her ribs. No nausea vomiting or diarrhea. Related Data Home Medications ?Medication ?Instructions ?Recorded ?Confirmed azithromycin 250 mg tablet See Rx Instructions PO .COMPLEX #6 06/19/24 tabs benzonatate 100 mg capsule 100 mg PO TID PRN cough #30 caps 06/19/24 promethazine 6.25 mg/5 mL oral 12.5 mg (10 mL) PO Q6H PRN cough 06/19/24 syrup #120 mL Previous Rx's ?Medication ?Instructions ?Recorded azithromycin 250 mg tablet See Rx Instructions PO .COMPLEX #6 06/19/24 tabs benzonatate 100 mg capsule 100 mg PO TID PRN cough #30 caps 06/19/24 promethazine 6.25 mg/5 mL oral 12.5 mg (10 mL) PO Q6H PRN cough 06/19/24 syrup #120 mL Allergies Allergy/AdvReac Type Severity Reaction Status Date / Time gabapentin AdvReac Other (See Unverified 06/19/24 09:42 Comment) lithium AdvReac Other (See Unverified 06/19/24 09:42 Comment) General Stated Complaint: RespSymp PIA: 3 Exam Narrative Exam Narrative: Review of Systems: All systems reviewed & are unremarkable except as noted in HPI and below Well-developed, no acute distress Afebrile NCAT Oropharynx clear RRR no murmur Unlabored respiratory effort clear bilaterally no hypoxia Course Vital Signs Vital signs: Vital Signs Temperature 36.8 C 06/19/24 09:42 Pulse 94 H 06/19/24 09:42 Respiratory Rate 18 06/19/24 09:42 Blood Pressure 176/137 H 06/19/24 09:42 Pulse Oximetry 97 06/19/24 09:42 Temperature 36.8 C 06/19/24 09:46 Temperature Source Core 06/19/24 09:46 Pulse 94 H 06/19/24 09:46 Respiratory Rate 18 06/19/24 09:46 Blood Pressure 176/137 H 06/19/24 09:46 Blood Pressure Position Sitting 06/19/24 09:46 Pulse Oximetry 97 06/19/24 09:46 Oxygen Delivery Method Room Air 06/19/24 09:46 Oxygen Flow Rate 0 06/19/24 09:46 Pain Level 6 06/19/24 09:46 Medical Decision Making Emergent evaluation URI and cough. Initial differential includes viral illness, pneumonia, bronchospasm. Although the patient is not exhibiting any hypoxia or wheezing at this time, I do feel that she would benefit from bronchodilator and steroid given her smoking history. A dose of steroid will be given and she was provided with a spacer and inhaler to use at home. A chest x-ray was obtained. I do appreciate a small consolidation given the duration and severity of her symptoms and high community prevalence, will treat for atypical pneumonia with azithromycin. Medication prescription for cough and supportive care were sent to the pharmacy as well. Return precautions advised. Discharged in good condition Quality:SDOH Health Related Social Needs: No Data to Display PFSH All Active Problems URI with cough and congestion (Acute) Abnormal Pap smear of cervix (Acute 01/04/14) 11/2013 ASCUS + HPV 12/2013 colpo bx - no dsyplasia. f/u pap and HPV one yr Constipation (Acute 01/04/14) Depression (Acute 01/04/14) Headache (Acute 01/04/14) Tobacco use (Acute 01/04/14) Medical History Constipation Hypertension Tobacco use Abnormal Pap smear 11/2013 ASCUS + HPV. 12/2013 Colpo directed bx. neg dysplasia. recommended cotesting 1yr Headache Depression has been receiving meds from PCP. Planning to enter counseling. Surgical History H/O: hysterectomy Ligation of fallopian tube Family History Father Diabetes Heart disease Hyperlipidemia Mental disorder Grandmother Diabetes Sister Mental disorder Social History Smoking/Tobacco Use Status: Current every day Tobacco Type: cigarettes Smoking risk assessment performed?: Yes Alcohol Intake: never Drug use: Daily Substance use type: marijuana Do you feel safe at home: Yes Do you feel safe in your relationship?: Yes
[2024-06-19 10:29] VITALS: BP 164/110; PULSE 83; RESP 14; O2SAT 98
[2024-06-19 10:32] LABS: COVID-19 PCR Negative (Negative); Influenza A PCR Negative (Negative); Influenza B PCR Negative (Negative); RSV PCR Negative (Negative)
[2024-06-19 10:33] LABS: Source Nasopharynx
--- NOTE | 2024-06-19 11:51 | DI.VRAD_ITS ---
PROCEDURE INFORMATION: Exam: XR Chest Exam date and time: 06/19/2024 10:04 AM Age: 39 years old Clinical indication: Cough TECHNIQUE: Imaging protocol: Radiologic exam of the chest. Views: 2 views. Total images: 2 COMPARISON: CR XR CHEST 2V PA LATERAL 12/09/2018 8:50 AM FINDINGS: Lungs: Atelectatic changes noted within both lung bases. No focal pneumonia. Pleural spaces: Unremarkable. No pleural effusion. No pneumothorax. Heart/Mediastinum: Unremarkable. No cardiomegaly. Diaphragm: There is nonspecific elevation of the right hemidiaphragm. Bones/joints: Unremarkable. IMPRESSION: 1. Atelectatic changes noted within both lung bases. 2. No focal pneumonia. Dictated and Authenticated by: Joni Amin MD. Ordering:DAVID Ross MD
== END 2024-06-19 10:32 | disposition home or self-care (01) ==
LOC: ER 10:47
PROVIDERS: Student in an Organized Health Care Education/Training Program; Emergency Provider Emergency Medicine
DX: J06.9 Acute upper respiratory infection, unspecified (principal); R09.89 Other specified symptoms and signs involving the circulatory and respiratory systems; R05.9 Cough, unspecified; F17.210 Nicotine dependence, cigarettes, uncomplicated
CPT/HCPCS: 87637; 99283; 71046; J8540

== ENCOUNTER 2024-07-20 13:11 | Emergency (ER) | payer MEDICAID, SELFPAY ==
--- NOTE | 2024-07-20 13:15 | RT.EKG_ITS ---
APPROVED REPORT Exam: Resting ECG Reason for Exam: Left sided neck, jaw, abd pain Patient Location: E HR:91 bpm ECG Measurements Heart Rate 91 AXIS OK 148 P 44 QRSd 117 QRS -8 QT 376 T -13 QTc 464 Conclusion Sinus rhythm, rate 91 No interval abnormalities No STEMI No priors available for comparison
[2024-07-20 13:20] VITALS: BP 168/114; PULSE 110; RESP 20; TEMP 36.9; O2SAT 98
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
--- NOTE | 2024-07-20 15:12 | ED.GENADUL_ITS ---
Discharge Plan Disposition Patient Disposition: Home Condition: Stable Discharge Details Clinical Impression: Abdominal pain Primary Care Provider: Unknown,Unknown ED Provider: Reese Davis Home Meds and New Rx's Prescriptions: Continued lorazepam 0.5 mg tablet 0.5 mg PO DAILY PRN Patient Comments: take 1 tablet by mouth once daily if needed for 30 DAYS Discharge Instructions Additional Instructions: Your lab work and imaging did not show any concerning findings If symptoms continue follow-up with your primary care provider If you feel more ill, have severe worsening pain or new symptoms such as persistent vomiting return to the emergency department for reevaluation HPI General Mode of arrival: ambulatory . Date/Time Provider Initiated Documentation: 07/20/24 13:28 . Limitations to Documentation: no limitations . Information obtained by: patient . History of Present Illness 39 year old F presents to the emergency department with the chief complaint of intermittent painful mass in luq abd, described as moderate, Quality is described as sharp, and is localized to the abdomen. Patient started experiencing this day(s) (1) and it has been constant. No relieving factors improve symptom(s), No exacerbating factors reported . Patient notes denies chest pain and fever/chills. Patient did receive the following treatments prior to arrival, none Related Data Home Medications ?Medication ?Instructions ?Recorded ?Confirmed lorazepam 0.5 mg tablet 0.5 mg PO DAILY PRN 07/20/24 07/20/24 Allergies Allergy/AdvReac Type Severity Reaction Status Date / Time gabapentin AdvReac Other (See Verified 07/20/24 13:19 Comment) lithium AdvReac Other (See Verified 07/20/24 13:19 Comment) General Stated Complaint: Abd Prob PIA: 3 Review of Systems All systems reviewed & are unremarkable except as noted in HPI and below Constitutional Constitutional: Denies chills, Denies fever(s) and Denies weakness Cardiovascular Cardiovascular: Denies chest pain and Denies dyspnea Respiratory Respiratory: Denies cough and Denies dyspnea Gastrointestinal Gastrointestinal: Reports abdominal pain, Denies nausea and Denies vomiting Neurologic Neurologic: Denies weakness Exam Const General: no acute distress Orientation: alert HENMT Head: normal to inspection Ears: external ears normal General nose exam: external nose normal Mouth: moist mucous membranes Eyes General: appearance normal, both eyes and all related structures Neck Neck: normal visual inspection Resp Effort & Inspection: normal respiratory effort and able to speak in complete sentences Auscultation: clear to auscultation bilaterally Cardio Jugular venous pressure: no JVD Rate: regular rate Heart Sounds: no murmurs GI Palpation: soft and tender Skin General skin exam: no rashes or lesions noted Neuro General: patient alert and patient oriented x3 Extrem General: normal to inspection, full ROM and capillary refill normal Psych Mental Status: mental status grossly normal Course Vital Signs Vital signs: Vital Signs Temperature 36.9 C 07/20/24 13:20 Pulse 110 H 07/20/24 13:20 Respiratory Rate 20 07/20/24 13:20 Blood Pressure 168/114 H 07/20/24 13:20 Pulse Oximetry 98 07/20/24 13:20 Temperature 36.9 C 07/20/24 13:20 Temperature Source Oral 07/20/24 13:20 Pulse 110 H 07/20/24 13:20 Respiratory Rate 20 07/20/24 13:20 Blood Pressure 168/114 H 07/20/24 13:20 Blood Pressure Position Sitting 07/20/24 13:20 Pulse Oximetry 98 07/20/24 13:20 Oxygen Delivery Method Room Air 07/20/24 13:20 Oxygen Flow Rate 0 07/20/24 13:20 Pain Level 7 07/20/24 13:20 Lab/Test Results Lab/Test Results: POC- Test(urine) Negative Medical Decision Making 39-year-old female states that since yesterday she is felt like there is a painful lump in her left upper quadrant of her abdomen and also has intermittent left shoulder pain. Denies any falls, fevers, chest pain, difficulty breathing, vomiting. She denies any arm swelling. She says that her pain has improved. Her abdomen is soft and nondistended. She does have reproducible tenderness in the left upper quadrant and I do not feel any mass. Her left shoulder is nontender and she has full range of motion. Given lack of trauma and no erythema or swelling I do not feel any imaging of the shoulder is indicated, no findings on exam to suggest septic joint. There is no swelling of the arm and intact distal sensation and pulses so doubt DVT or arterial occlusion. Will check a troponin given she has had symptoms since yesterday with the shoulder pain to exclude ACS. Also obtain CBC, CMP, lipase and a CT abdomen pelvis to evaluate for possible hernia. No tearing back pain and equal peripheral pulses so doubt dissection. No hypoxia or tachycardia or pleuritic chest pain so I doubt PE Patient stable, labs and imaging unremarkable. She does note that her big dog did jump up and hit her in the area where she is having pain so could have a hematoma that she is not showing up on CT. She is stable for discharge and will follow-up with her PCP if not improving and return precautions given Differential Diagnosis Differential Diagnosis: hernia, abdominal wall pain Quality:SDOH Health Related Social Needs: No Data to Display PFSH All Active Problems Abdominal pain (Acute) Abnormal Pap smear of cervix (Acute 01/04/14) 11/2013 ASCUS + HPV 12/2013 colpo bx - no dsyplasia. f/u pap and HPV one yr Constipation (Acute 01/04/14) Depression (Acute 01/04/14) Headache (Acute 01/04/14) Tobacco use (Acute 01/04/14) Medical History (Updated 07/20/24 @ 16:24 by Reese Davis MD) Constipation Hypertension Tobacco use Abnormal Pap smear 11/2013 ASCUS + HPV. 12/2013 Colpo directed bx. neg dysplasia. recommended c otesting 1yr Headache Depression has been receiving meds from PCP. Planning to enter counseling. Surgical History H/O: hysterectomy Ligation of fallopian tube Family History Father Diabetes Heart disease Hyperlipidemia Mental disorder Grandmother Diabetes Sister Mental disorder Social History Smoking/Tobacco Use Status: Current every day Tobacco Type: cigarettes Smoking risk assessment performed?: Yes Alcohol Intake: never Drug use: Daily Substance use type: marijuana Do you feel safe at home: Yes Do you feel safe in your relationship?: Yes
[2024-07-20 15:17] LABS: Bilirubin Negative (Negative); Blood Negative (Negative); Clarity Clear (Clear); Glucose Negative (Negative); Ketones Negative (Negative); Leukocyte Esterase Negative (Negative); Nitrite Negative (Negative); Urobilinogen 0.2 mg/dL (Up to 0.2)
[2024-07-20 15:21] LABS: Lactate 1.3 mmol/L (<or=2.0)
[2024-07-20 15:22] LABS: Abs Immature Grans 0.05 10^3/uL (0.0-0.06); Absolute Basophil Count 0.08 10^3/uL (0.0-0.2); Absolute Eosinophil Count 0.37 10^3/uL (0.0-0.7); Absolute Lymphocyte Count 3.58 10^3/uL (1.2-3.4); Absolute Monocyte Count 0.69 10^3/uL (0.1-0.8); Absolute Neutrophil Count 6.37 10^3/uL (1.2-6.7); Basophils % 0.7 %; Eosinophils % 3.3 %; HCT 41.2 % (36.0-46.0); HGB 14.6 g/dL (11.2-15.7); Immature Grans % 0.4 %; Lymphocytes % 32.2 %; MCH 30.6 pg (27.0-33.0); MCHC 35.4 % (32.0-36.0); MCV 86 fL (80-95); MPV 9.5 fL (8.0-11.0); Monocytes % 6.2 %; Neutrophils % 57.2 %; Platelet Count 321 10^3/uL (130-400); RBC 4.77 10^6/uL (3.93-5.22); RDW 11.9 % (11.7-14.6); WBC 11.13 10^3/uL (4.4-10.8)
[2024-07-20 15:29] VITALS: BP 128/87; PULSE 78; RESP 18; TEMP 37; O2SAT 97
[2024-07-20] MEDS: Omnipaque 350 MG/ML 100 ML BTL IJ (15:42)
[2024-07-20] MEDS: Normal Saline - Diluent 50 ML VIAL IJ (15:43)
[2024-07-20 15:54] LABS: Troponin I < 4 ng/L (<or=51)
[2024-07-20 16:01] LABS: ALT 21 U/L (14-59); AST 13 U/L (15-37); Albumin 4.5 g/dL (3.4-5.0); Alkaline Phosphatase 45 U/L (46-116); Anion Gap 11.5 mmol/L (3-11); BUN 8 mg/dL (7-18); Bilirubin, Total 0.53 mg/dL (0.2-1.0); CO2 23.5 mmol/L (21.0-32.0); Calcium 9.7 mg/dL (8.5-10.1); Chloride 104 mmol/L (98-107); Estimated GFR 73.04 (mL/min/1.73m2); Glucose 102 mg/dL (74-106); Potassium 4.1 mmol/L (3.5-5.1); Sodium 139 mmol/L (136-145); Total Protein 8.5 g/dL (6.4-8.2)
[2024-07-20 16:39] LABS: Lipase 28 U/L (<78)
== END 2024-07-20 16:49 | disposition home or self-care (01) ==
PROVIDERS: Registered Nurse Emergency; Emergency Provider Emergency Medicine
DX: R10.12 Left upper quadrant pain (principal); M25.512 Pain in left shoulder; I10 Essential (primary) hypertension; F17.210 Nicotine dependence, cigarettes, uncomplicated; Z90.710 Acquired absence of both cervix and uterus
CPT/HCPCS: 36415; 80053; 81025; 83690; 93005; 99285; 74177; 81003; 83605; 83735; 84443; 84484; 85025; 93010; 99284; J3490

== ENCOUNTER 2024-07-29 17:16 | Emergency (ER) | payer MEDICAID, SELFPAY ==
[2024-07-29] VITALS (18 sets, daily range): BP systolic 121–154; BP diastolic 77–97; PULSE 56–86; RESP 10–21; TEMP 36.8; O2SAT 96–100
--- NOTE | 2024-07-29 17:00 | RT.EKG_ITS ---
APPROVED REPORT Exam: Resting ECG Reason for Exam: CHEST PAIN Patient Location: E HR:63 bpm ECG Measurements Heart Rate 63 AXIS CA 162 P 33 QRSd 117 QRS 3 QT 419 T 30 QTc 431 Conclusion Sinus rhythm, rate 63 IVCD, unchanged from priors No STEMI
--- NOTE | 2024-07-29 17:15 | DI.RAD_ITS ---
Exam(s) XR CHEST 2V PA LATERAL EXAM: XR CHEST 2V PA LATERAL CLINICAL HISTORY: Chest pain TECHNIQUE: 2D digital imaging was performed of the chest. Two images were obtained. PA and lateral views were obtained. COMPARISON: CR,XR XR CHEST 2V PA LATERAL from 06/19/2024 FINDINGS: MEDIASTINUM: Normal. HEART: Normal. PULMONARY VASCULATURE: Normal. LUNGS: Note is made of an azygos lobe. The lungs are clear. PLEURAL SPACE: No pleural effusion or pneumothorax. BONE:Within normal limits for the patient's age. OTHER FINDINGS:Normal. IMPRESSION: No acute pulmonary findings. DATA REPOSITORY: RADIATION DOSE DELIVERED:
--- NOTE | 2024-07-29 17:32 | ED.GENADUL_ITS ---
Discharge Plan Disposition Patient Disposition: Home Condition: Stable Discharge Details Clinical Impression: Acute costochondritis Primary Care Provider: Unknown,Unknown ED Provider: Tete Rush Home Meds and New Rx's Prescriptions: New lidocaine [Lidoderm] 5 % adhesive patch,medicated 1 patch topical DAILY Qty: 30 0RF Rx Instructions: leave on most painful area for up to 12 hrs No Action lorazepam 0.5 mg tablet 0.5 mg PO DAILY PRN Patient Comments: take 1 tablet by mouth once daily if needed for 30 DAYS Discharge Instructions Instructions: Costochondritis Additional Instructions: You were seen in the emergency department today for evaluation of chest pain, which is most concerning for costochondritis, and inflammation of the cartilage and areas around the ribs. This can happen after pneumonia like you had. In our department you had a reassuring EKG, had laboratory studies that did not show any abnormalities to account for your symptoms, and had negative cardiac enzymes with no evidence of damage to your heart. Your chest x-ray was normal and there is no sign of ongoing pneumonia. Please continue the Tylenol and ibuprofen, and I have given you a prescription for lidocaine patches which can be used for ongoing pain. Please follow-up with your primary care provider in the next few days to discuss this visit and any symptoms that change, worsen, or persist. Thank you for allowing us to be part of your care. Discharge Data Discharge Date/Time-TO BE ENTERED AT DEPARTURE: 07/29/24 19:13 HPI General Mode of arrival: ambulatory . Date/Time Provider Initiated Documentation: 07/29/24 17:26 . Limitations to Documentation: no limitations . Information obtained by: patient, EMS and old records reviewed . HPI Narrative: HPI: This is a 39-year-old female patient with a past medical history significant for anxiety, hypertension, hypercholesterolemia close presenting for evaluation of 2 weeks of intermittent chest pain. She reports that this pain has come and gone for the last 2 weeks, does occur every day, and is exacerbated by movement, palpation, and deep breath. She feels like her anxiety also makes it worse, but she is anxious about the chest pain itself, states that she has been using Tylenol and ibuprofen as well as her prescribed lorazepam. She was treated for pneumonia several weeks ago, completed a 5-day course of antibiotics, but does not feel like she entirely recovered. She states that she had a runny nose for the last month but this has improved over the last 3 days. She has not had fever, has had a mild cough, states that she has not noted any leg swelling or tenderness. No personal history of thromboembolic disease. EMS noted the patient to have a nonischemic EKG, provided her with a dose of aspirin, nitroglycerin, and she was transported in hemodynamically stable condition to our facility for further exam. Exam: Gen: Awake and alert, in no apparent distress HEENT: Non-icteric sclera Neck: Supple Lungs: No apparent respiratory distress, normal respiratory effort. Crackles appreciated left upper lobe, otherwise clear CV: Appears well perfused, heart with regular rate and rhythm, strong distal pulses. Chest wall tender to palpation with no overlying skin changes Abdomen: Non-distended MSK: Moves 4 extremities without apparent limitation in ROM. No unilateral calf swelling or tenderness Skin: Visualized skin without rashes, cyanosis. Neuro: Normal Gait, no obvious focal deficits or facial asymmetry. Speaks in full, clear sentences. Psych: Appropriate for situation. MDM: This is a 39-year-old female patient presenting for evaluation of 2 weeks of intermittent chest pain. My differential includes but is not limited to ACS including STEMI, NSTEMI, unstable angina, certainly considered arrhythmia, pericarditis/myocarditis, aortic pathology. Considered pulmonary abnormalities including pneumonia, bronchitis, pleural effusion, pulmonary edema, reactive airway disease, pneumothorax. The patient is without tachycardia, hypoxia, or a pleuritic component to his pain to significantly increase my concern for pulmonary embolism, and at this time the patient meets PERC criteria for rule out. No GI symptoms or vomiting to suggest Boerhaave's, esophagitis, peptic ulcer disease, pancreatitis. Considered musculoskeletal pathologies including costochondritis, chest wall pain. We will obtain laboratory studies to include CBC, CMP, magnesium, troponin, and will obtain a chest x-ray and EKG. The patient is not due for any Tylenol or ibuprofen, but I will provide her with a lidocaine patch. ED Course: I independently interpreted the laboratory studies, which show no significant leukocytosis, anemia, or thrombocytopenia. The chemistry panel is without evidence of electrolyte abnormality, kidney dysfunction, or liver injury. Troponin less than 4, and given the duration of symptoms I do not see an indication to proceed with further delta checks. Urinalysis noninfectious, U. Preg negative, lipase is low. Chest x-ray reviewed by myself, showing no evidence of focal consolidation or other abnormalities to suggest pneumonia, pneumothorax, etc. The patient's examination is most concerning for costochondritis, and she reports significant improvement in her pain with lidocaine patch. A prescription for same was sent to her pharmacy and I did behavioral health counselor her on continuing Tylenol and ibuprofen, and she has a scheduled follow-up with her primary care provider at which time she will discuss any symptoms that change, worsen, or persist. At this time, the patient has had a full medical evaluation and is safe for discharge to home. They are hemodynamically stable, ambulatory, and tolerating PO. They are understanding of the follow-up plan and return precautions. They left our facility without incident. Tete Rush MD Related Data Home Medications ?Medication ?Instructions ?Recorded ?Confirmed lorazepam 0.5 mg tablet 0.5 mg PO DAILY PRN 07/20/24 07/29/24 lidocaine 5 % topical patch 1 patch topical DAILY #30 ea 07/29/24 (Lidoderm) Previous Rx's ?Medication ?Instructions ?Recorded lidocaine 5 % topical patch 1 patch topical DAILY #30 ea 07/29/24 (Lidoderm) Allergies Allergy/AdvReac Type Severity Reaction Status Date / Time gabapentin AdvReac Other (See Verified 07/29/24 17:26 Comment) lithium AdvReac Other (See Verified 07/29/24 17:26 Comment) General Stated Complaint: Chest Pain PIA: 3 Course Vital Signs Vital signs: Vital Signs Temperature 36.8 C 07/29/24 17:18 Pulse 86 07/29/24 17:18 Respiratory Rate 18 07/29/24 17:18 Blood Pressure 135/77 07/29/24 17:18 Pulse Oximetry 99 07/29/24 17:18 Temperature 36.8 C 07/29/24 17:18 Temperature Source Temporal Artery Scan 07/29/24 17:18 Pulse 86 07/29/24 17:18 Respiratory Rate 18 07/29/24 17:18 Blood Pressure 135/77 07/29/24 17:18 Blood Pressure Position Sitting 07/29/24 17:18 Pulse Oximetry 99 07/29/24 17:18 Oxygen Delivery Method Room Air 07/29/24 17:18 Oxygen Flow Rate 0 07/29/24 17:18 Medical Decision Making Quality:SDOH Health Related Social Needs: No Data to Display PFSH All Active Problems Acute costochondritis (Acute) Abdominal pain (Acute) Abnormal Pap smear of cervix (Acute 01/04/14) 11/2013 ASCUS + HPV 12/2013 colpo bx - no dsyplasia. f/u pap and HPV one yr Constipation (Acute 01/04/14) Depression (Acute 01/04/14) Headache (Acute 01/04/14) Tobacco use (Acute 01/04/14) Medical History (Updated 07/29/24 @ 19:06 by Tete Rush MD) Constipation Hypertension Tobacco use Abnormal Pap smear 11/2013 ASCUS + HPV. 12/2013 Colpo directed bx. neg dysplasia. recommended cotesting 1yr Headache Depression has been receiving meds from PCP. Planning to enter counseling. Surgical History H/O: hysterectomy Ligation of fallopian tube Family History Father Diabetes Heart disease Hyperlipidemia Mental disorder Grandmother Diabetes Sister Mental disorder Social History Smoking/Tobacco Use Status: Current every day Tobacco Type: e-cigarettes Smoking risk assessment performed?: Yes Alcohol Intake: never Drug use: Never Substance use type: does not use Do you feel safe at home: Yes Do you feel safe in your relationship?: Yes
[2024-07-29 17:41] LABS: Bilirubin Negative (Negative); Blood Negative (Negative); Clarity Clear (Clear); Glucose Negative (Negative); Ketones Negative (Negative); Leukocyte Esterase Negative (Negative); Nitrite Negative (Negative); Specific Gravity <= 1.005 (1.005-1.025); Urobilinogen 0.2 mg/dL (Up to 0.2)
[2024-07-29 17:47] LABS: Abs Immature Grans 0.04 10^3/uL (0.0-0.06); Absolute Basophil Count 0.11 10^3/uL (0.0-0.2); Absolute Eosinophil Count 0.34 10^3/uL (0.0-0.7); Absolute Monocyte Count 0.48 10^3/uL (0.1-0.8); Absolute Neutrophil Count 4.05 10^3/uL (1.2-6.7); Basophils % 1.3 %; HCT 40.3 % (36.0-46.0); HGB 13.9 g/dL (11.2-15.7); Immature Grans % 0.5 %; Lymphocytes % 41.1 %; MCH 30.5 pg (27.0-33.0); MCHC 34.5 % (32.0-36.0); MCV 89 fL (80-95); MPV 9.6 fL (8.0-11.0); Monocytes % 5.6 %; Neutrophils % 47.5 %; Platelet Count 311 10^3/uL (130-400); RBC 4.55 10^6/uL (3.93-5.22); RDW 11.9 % (11.7-14.6); WBC 8.52 10^3/uL (4.4-10.8)
[2024-07-29] MEDS: Lidocaine 5% Patch 1 PATCH TP (18:04)
[2024-07-29 18:17] LABS: ALT 70 U/L (14-59); AST 34 U/L (15-37); Albumin 4.4 g/dL (3.4-5.0); Alkaline Phosphatase 43 U/L (46-116); BUN 7 mg/dL (7-18); Bilirubin, Total 0.54 mg/dL (0.2-1.0); CREATININE 0.9 mg/dL (0.55-1.02); Calcium 9.6 mg/dL (8.5-10.1); Chloride 106 mmol/L (98-107); Estimated GFR 82.88 (mL/min/1.73m2); Glucose 103 mg/dL (74-106); Lipase 41 U/L (<78); Magnesium 1.8 mg/dL (1.8-2.4); Potassium 3.9 mmol/L (3.5-5.1); Sodium 143 mmol/L (136-145); Troponin I < 4 ng/L (<or=51)
[2024-07-29 19:25] LABS: Troponin I < 4 ng/L (<or=51)
== END 2024-07-29 19:13 | disposition home or self-care (01) ==
PROVIDERS: Emergency Provider Emergency Medicine
DX: M94.0 Chondrocostal junction syndrome [Tietze] (principal); I10 Essential (primary) hypertension; F41.9 Anxiety disorder, unspecified
CPT/HCPCS: 36415; 80053; 81025; 83690; 93005; 99285; 71046; 81003; 83735; 84484; 85025; 93010; 99284

== ENCOUNTER 2024-12-21 04:25 | Outpatient (CLI) | payer MEDICAID, SELFPAY ==
[2024-12-21] MEDS: Levalbuterol HFA 15 GM INH 4 PUFF IH (11:23)
[2024-12-21] MEDS: Inhaler, Assist Device 1 EACH MC (11:23)
--- NOTE | 2024-12-27 12:10 | W.PFT ---
Date of service: 12/21/24 Time of Service: 10:02 Pulmonary Function Test Result Indications: Dyspnea on exertion Interpretation Spirometry: No airflow limitation. No significant bronchodilator response. Lung Volumes: There is air trapping and hyperinflation Diffusion Capacity: Normal diffusion Airway Pressure: Normal airways resistance Impression There is air trapping Clinical Correlation therefore is recommended.
== END 2024-12-21 04:26 | disposition home or self-care (01) ==
PROVIDERS: PCP Nurse Practitioner Family; Visit Provider Student in an Organized Health Care Education/Training Program
DX: R06.09 Other forms of dyspnea (principal)
CPT/HCPCS: 94060; 94726; 94729

== ENCOUNTER 2025-01-07 00:19 | Outpatient (CLI) | payer MEDICAID, SELFPAY ==
--- NOTE | 2025-01-07 | DI.MAMMO_ITS ---
Exam(s) MAMMO SCREENING EXAM: MAMMO SCREENING CLINICAL HISTORY: screening Z12.31. TECHNIQUE: Bilateral full field digital CC and MLO mammographic images were obtained with 3D tomosynthesis and utilizing computer aided detection (CAD). COMPARISON: None. This is a baseline mammogram on this 39-year-old patient FINDINGS: No significant focal left breast finding In the inferolateral aspect of the right breast there is a benign-appearing finding which is either lymph node or small conglomeration microcysts. There are no new spiculated masses nor malignant appearing microcalcification groups. There is no significant architectural distortion nor skin thickening-retraction. IMPRESSION: Benign appearing findings. No radiographic evidence of malignancy. BI-RADS Category 2 - Benign Findings Breast Density - Category B - There are scattered areas of fibroglandular density. Breast density Category C or D implies that the patient has dense breast tissue. Dense breast tissue can make it harder to find cancer on a mammogram. Dense breast tissue is also associated with an increased risk of breast cancer. This information about the result of the mammogram report was provided to the patient to raise their awareness. Use this report when you speak with the patient about their risks for breast cancer, which includes their family history. At that time, you may recommend additional screening tests (Ultrasound or MRI) as these tests may add significant information. A negative radiographic report should not delay biopsy if a dominant or clinically suspicious mass is present. Up to ten percent of cancers are not identified on mammography. A negative report may reinforce clinical impression. Adenosis and dense breasts may obscure an underlying neoplasm. False positive reports average 6 to 10%. Patient will receive a letter notifying them of these results.
== END 2025-01-07 00:39 ==
PROVIDERS: PCP Nurse Practitioner Family; Visit Provider Nurse Practitioner Family
DX: Z12.31 Encounter for screening mammogram for malignant neoplasm of breast (principal); R92.323 Mammographic fibroglandular density, bilateral breasts
CPT/HCPCS: 77063; 77067

== ENCOUNTER 2025-01-28 00:45 | Outpatient (CLI) | payer MEDICAID, SELFPAY ==
--- NOTE | 2025-01-28 | DI.US_ITS ---
APPROVED REPORT EXAM: Comprehensive 2D, Doppler, and color-flow Echocardiogram Patient Location: Out-Patient Manager Facility: [facility] RT (R) (CT) RD Rhythm: NSR Indications: Dyspnea on exertion. Other Information Study Quality: Fair Conclusion Mild concentric left ventricular hypertrophy. Ejection fraction is 65%. Wall motion is normal Normal right ventricular size and function Both atria are normal in size There is no structural or hemodynamically significant valvular disease Wall motion Left Ventricle The left ventricle is normal size. The left ventricular systolic function is normal. The left ventricular ejection fraction is within the normal range. Mild concentric left ventricular hypertrophy. There is normal LV segmental wall motion. The left ventricular diastolic function is normal. There is no ventricular septal defect visualized. LVEF is 65%. Right Ventricle The right ventricle is normal size. The right ventricular systolic function is normal. There is normal right ventricular wall thickness. Atria The left atrium size is normal. The right atrium size is normal. The interatrial septum is intact with no evidence for an atrial septal defect. Aortic Valve The aortic valve is normal in structure. There is no aortic valvular stenosis. No aortic regurgitation is present. Mitral Valve The mitral valve is normal in structure. No evidence of mitral valve stenosis. Trivial mitral regurgitation. Tricuspid Valve The tricuspid valve is normal in structure. There is no tricuspid valve stenosis. Trace tricuspid regurgitation. Pulmonic Valve The pulmonary valve is normal in structure. There is no pulmonic valvular stenosis. There is no pulmonic valvular regurgitation. Great Vessels The aortic root is normal in size. The pulmonary artery is normal. The ascending aorta is normal in size. IVC is normal in size and collapses >50% with inspiration. Pericardium There is no pericardial effusion. 2D Dimensions IVSD d PLAX 1.18 cm F: 0.6-1.0 Ao Root d 2.93 cm F: 2.7 - 3.3 LVPW d PLAX 1.10 cm F: 0.6 - 1.0 Ao Asc Diam d 3.50 cm F: 2.3 - 3.1 LVID d PLAX 5.16 cm F: 3.8 - 5.2 Prox Ao Arch 2.9 cm LVDs 3.32 cm F: 2.2 - 3.5 IVC Diam exp d SLAX 1.2 cm LV EF Teichholz 64.9 % FS 35.76 % LV EDV (Teich) 127.5 mL LV ESV (Teich) 44.7 mL M-Mode TAPSE 2.03 cm (M/F) >1.7 Auto EF LV EDV A4C 116.7 mL LV EDV A2C 131.4 mL LV EDV BP 123.3 mL LV ESV A4C 55.2 mL LV ESV A2C 64.6 mL LV ESV BP 59.6 mL LVEF(%) A4C 52.7 % LVEF(%) A2C 50.8 % LVEF(%) BP 51.6 % LV SV A4C 61.5 ml LV SV A2C 66.8 ml LV SV BP 63.7 ml LV CO A4C 4.7 L/min LV CO A2C 5.9 L/min LV CO BP 5.3 L/min HR A4C 77.09 BPM HR A2C 88.02 BPM LV EDV Index (BP) LV Volumes - Method of Disks (Kathleen's) Single Plane 2D LV Volumes Biplane 2D LV Volumes LV EDV A4C 134.7 mL LV EDV BP 120.40 mL F: 46 - 106 LV ESV A4C 43.5 mL LV ESV BP 48.7 mL LVEF(%) A4C 67.7 % LVEF(%) BP 59.57 % F: 54 - 74 LV EDV A2C 105.8 mL LV EDV BP Index 52.12 mL/m2 F: 29 - 61 LV ESV A2C 46.3 mL SV BP LVEF(%) A2C 56.2 % SV Index LV Strain Long Pk Overal Avg (s) 15.89 RV Strain Global Peak Long. Strain A4C 23.50 Global Peak Long. Strain A4C FW 29.90 LA Volume LA Length A4C 3.2 cm LA Length A2C 4.7 cm LA Area A4C s 7.79 cm2 LA Area A2C s 11.83 cm2 LA Vol A4C A-L 16.13 mL LA Vol A2C A-L 25.09 mL LA Vol Biplane A-L 24.5 mL LA Vol/BSA A4C A-L LA Vol/BSA A2C A-L LA Vol/BSA BP A-L 10.6 mL/m2 LA Vol A4C MOD 15.7 mL LA Vol A2C MOD 22.3 mL LA Vol BP MOD 22.6 mL LV Diastology MV E' medial 0.069 (>0.07 m/s) MV E Vmax 0.96 (0.4-1.3 m/s) MV E/E' MED 13.84 (<14) MV A Vmax 0.80 (0.4-1.3 m/s) MV E' lateral 0.115 (>0.1 m/s) E/A Ratio 1.2 MV E/E' LAT 8.36 (<14) MV E' Average 0.092 m/s MV E/E'(average) 10.42 Aortic Valve LVOT Vmax 1.02 m/s LVOT Peak Grad 4.2 mmHg LVOT VTI 0.180 m LVOT Mean Grad 2.0 mmHg LVOT SV 78.23 mL LVOT Diam s 2.35 cm Mitral Valve MV DT 158 (160-240 msec) Pulm Vein s 0.45 m/s Pulm Vein d 0.58 m/s Pulm Vein a 0.22 m/s Tricuspid Valve RA Pressure 3.00 mmHg TR Vmax 2.13 m/s TV S' 0.12 m/s TR Peak Grad 18.0 mmHg RVSP (TR) 21.1 mmHg
== END 2025-01-28 01:05 ==
LOC: DI 00:45
PROVIDERS: PCP Nurse Practitioner Family; Visit Provider Internal Medicine Cardiovascular Disease
DX: R06.09 Other forms of dyspnea (principal); I51.7 Cardiomegaly
CPT/HCPCS: 93306

== ENCOUNTER 2025-03-26 10:50 | Emergency (ER) | payer MEDICAID, SELFPAY ==
[2025-03-26] VITALS (18 sets, daily range): BP systolic 125–170; BP diastolic 78–119; PULSE 64–123; RESP 12–22; TEMP 37.1; O2SAT 96–99
--- NOTE | 2025-03-26 10:45 | RT.EKG_ITS ---
APPROVED REPORT Exam: Resting ECG Reason for Exam: Chest Pain Patient Location: E HR:118 bpm ECG Measurements Heart Rate 118 AXIS WI 150 P 53 QRSd 102 QRS -40 QT 330 T 34 QTc 463 Conclusion Sinus tachycardia...rate> 99 Left axis deviation...QRS axis (-30,-90)
--- NOTE | 2025-03-26 11:15 | DI.CT_ITS ---
Exam(s) CT CHEST PE CTA EXAM: CT CHEST PE CTA CLINICAL HISTORY: Chest pain concern for PE. TECHNIQUE: Imaging Protocol: CT angiography of the chest was performed using pulmonary embolus protocol. Multi planar reconstructions were performed. CONTRAST MATERIAL: Intravenous: Omnipaque 350 Contrast volume: 100 cc COMPARISON: CT CHEST WITH CONTRAST from 01/09/2018 FINDINGS: CHEST: PULMONARY ARTERIES: There are no intraluminal filling defects to suggest acute pulmonary emboli. LUNGS: There are no infiltrates nor evidence of pulmonary infarction.. No significant lung nodules. There are no pleural effusions. Accessory azygos lobe on the right incidentally noted. MEDIASTINUM: There is no hilar nor mediastinal adenopathy. Visualized thyroid unremarkable. CARDIAC: Heart size is upper normal. There is no pericardial effusion.Caliber of the thoracic aorta is within normal limits. No evidence of aortic dissection. There is no significant shift of the interventricular septum. PARTIALLY VISUALIZED UPPERMOST ABDOMEN: There is no significant reflux of intravenous contrast into the intrahepatic IVC (which would suggest right heart strain). No ascites. Spleen size normal. No adrenal masses. Hepatic steatosis. No gallstones. OSSEOUS: No significant osseous lesions.. IMPRESSION: 1. No evidence of acute pulmonary emboli. No evidence of pulmonary infarction. No significant pulmonary findings and no pleural effusion 2. No evidence of aortic dissection nor pericardial effusion. 3. Essentially a negative study. RADIATION DOSE DELIVERED: 344.36mGy.cm Total DLP DATA REPOSITORY: All CT scans at this facility are submitted to the National Radiology Data Registry (NRDR) Dose Index Registry (DIR) with the [employer] (ACR). RADIATION OPTIMIZATION: All CT scans at this facility use at least one of these dose optimization techniques: automated exposure control; mA and/or kV adjustment per patient size (includes targeted exams where dose is matched to clinical indication); or iterative reconstruction.
--- NOTE | 2025-03-26 11:16 | W.ED.GENAD ---
Discharge Plan Disposition Patient Disposition: Home Condition: Stable Discharge Details Clinical Impression: Chest pain not due to acute coronary syndrome Primary Care Provider: Stephie Schulte ED Provider: Kassie Deal Home Meds and New Rx's Prescriptions: Continued zolpidem 5 mg tablet 5 mg PO QHS multivitamin Tablet 1 tab PO DAILY topiramate [Topamax] 100 mg tablet 100 mg PO DAILY omega-3 fatty acids [Fish Oil] 1 cap PO DAILY lorazepam 0.5 mg tablet 0.5 mg PO DAILY PRN Patient Comments: take 1 tablet by mouth once daily if needed for 30 DAYS lidocaine [Lidoderm] 5 % adhesive patch,medicated 1 patch topical DAILY Qty: 30 0RF Rx Instructions: leave on most painful area for up to 12 hrs Discharge Instructions Instructions: Chest Pain, Adult ED Additional Instructions: No evidence of blood clots in your lungs today. No evidence of heart attack or cardiac disorder. No evidence of pneumonia on the CT. Please take Tylenol or Ibuprofen with food every 4-6 hours as needed for pain and swelling. Follow up with primary care provider in 3-5 days. Return to ED sooner if any worsening or concerns. Referrals: Stephie Schulte [Primary Care Provider, Medicine] - 5 days Referral Note: ER follow-up, call for appointment Clinical Impression: Chest pain not due to acute coronary syndrome Discharge Data Discharge Date/Time-TO BE ENTERED AT DEPARTURE: 03/26/25 14:58 HPI General Mode of arrival: ambulatory. Date/Time Provider Initiated Documentation: 03/26/25 11:05. Limitations to Documentation: no limitations. Information obtained by: patient, RN notes reviewed and old records reviewed. HPI Narrative: 40-year-old female presents to the ER with a chief complaint of left-sided chest pain and vibration which radiates into her left shoulder. She states that this has been ongoing for the last 5 days increased yesterday. She did take a 0.5 mg of lorazepam prior to arrival. She is tachycardic and hypertensive upon arrival. She does appear anxious. She reports some lightheadedness and dizziness has been diagnosed with costochondritis in the past she was seen by pain management which instructed that she had some cervical spine radiculopathy which could be attributing to her symptoms. She denies any cough or productive cough denies any shortness of breath or nausea. She did recently have an echocardiogram which was within normal limits. EF of over 65%. She does endorse vaping and occasional marijuana denies any other drugs or alcohol. She does have a past medical history of hypertension, former smoker, fibromyalgia, costochondritis, PTSD, generalized anxiety disorder, obesity, bipolar 1 disorder, ADHD. She has had a hysterectomy. Fallopian tube ligation. Related Data Home Medications ?Medication ?Instructions ?Recorded ?Confirmed lorazepam 0.5 mg tablet 0.5 mg PO DAILY PRN 07/20/24 03/26/25 lidocaine 5 % topical patch 1 patch topical DAILY #30 ea 07/29/24 03/26/25 (Lidoderm) multivitamin 1 tab PO DAILY 02/01/25 03/26/25 omega-3 fatty acids 1 cap PO DAILY 02/01/25 03/26/25 topiramate 100 mg tablet (Topamax) 100 mg PO DAILY 02/01/25 03/26/25 zolpidem 5 mg tablet 5 mg PO QHS 02/01/25 03/26/25 Previous Rx's ?Medication ?Instructions ?Recorded lidocaine 5 % topical patch 1 patch topical DAILY #30 ea 07/29/24 (Lidoderm) Allergies Allergy/AdvReac Type Severity Reaction Status Date / Time pregabalin (From Lyrica) Allergy Intermediate Unknown Verified 03/26/25 10:57 escitalopram (From Lexapro) Allergy Unknown Other (See Verified 03/26/25 10:57 Comment) gabapentin AdvReac Other (See Verified 03/26/25 10:57 Comment) lithium AdvReac Other (See Verified 03/26/25 10:57 Comment) General Stated Complaint: Chest Pain PIA: 2 Review of Systems All systems reviewed & are unremarkable except as noted in HPI and below Cardiovascular Cardiovascular: Reports chest pain, Reports chest pain at rest, Reports rapid heart rate, Denies pedal edema, Denies leg edema, Reports radiating jaw, neck or arm pain and Reports palpitations Respiratory Respiratory: Denies chest congestion, Denies cough and Denies hemoptysis Endocrine Endocrine: Reports palpitations Exam Narrative Exam Narrative: Constitutional: Alert and oriented x3. Appears stated age. Obese body habitus. Head: Normocephalic, no trauma. Eyes: Pupils PERRL, Red reflex noted, EOM's intact. Eyelids symmetrical without lesions, discharge, or swelling. ENT: Bilateral TM's WNL, External ear normal to inspection, no mastoid TTP, swelling, or erythema, Nasal turbinates WNL, no nasal discharge. Normal dentition, Posterior pharynx WNL, no exudate. Chest: RRR, Normal S1, S2, distal pulses intact. Resp: Lungs clear to auscultation bilaterally, no wheezes, rales, or rhonchi. Abdomen: Soft, non-distended, Normoactive bowel sounds all 4 quads. Musculoskeletal: Normal gait, Moves all 4 extremities without difficulty. Skin: No suspicious rashes or lesions. Capillary refill less than 2 sec. Neurologic: Cranial nerves II-XII intact. Alert and oriented x 3. Motor: No deficits noted. Sensory: Intact bilaterally all 4 extremities. Hematologic/Lymphatic: No ecchymosis, no lymphadenopathy. Course Vital Signs Vital signs: Vital Signs Temperature 37.1 C 03/26/25 10:51 Pulse 123 H 03/26/25 10:51 Respiratory Rate 20 03/26/25 10:51 Blood Pressure 170/119 H 03/26/25 10:51 Pulse Oximetry 97 03/26/25 10:51 Temperature 37.1 C 03/26/25 10:51 Temperature Source Oral 03/26/25 10:51 Pulse 123 H 03/26/25 10:51 Respiratory Rate 20 03/26/25 10:51 Respiratory Effort Normal 03/26/25 11:09 Respiratory Depth Normal 03/26/25 11:09 Respiratory Pattern Normal 03/26/25 11:09 Blood Pressure 170/119 H 03/26/25 10:51 Blood Pressure Position Sitting 03/26/25 10:51 Pulse Oximetry 97 03/26/25 10:51 Oxygen Delivery Method Room Air 03/26/25 10:51 Oxygen Flow Rate 0 03/26/25 10:51 Pain Level 10 03/26/25 10:51 Medical Decision Making 40-year-old female presents to the ER with a chief complaint of left-sided chest pain and vibration which radiates into her left shoulder. She states that this has been ongoing for the last 5 days increased yesterday. She did take a 0.5 mg of lorazepam prior to arrival. She is tachycardic and hypertensive upon arrival. She does appear anxious. She reports some lightheadedness and dizziness has been diagnosed with costochondritis in the past she was seen by pain management which instructed that she had some cervical spine radiculopathy which could be attributing to her symptoms. She denies any cough or productive cough denies any shortness of breath or nausea. She did recently have an echocardiogram which was within normal limits. Cardiac workup ordered including serial troponins, CBC CMP lipase urinalysis CT chest rule out PE. CT shows no evidence for PE. No leukocytosis CBC within normal limits, lipase 26 CMP largely within normal limits. Troponins less than 4. Patient to be discharged home, will give Toradol IV prior to discharge discharged home care. Past workup results with patient who verbalized understanding. Patient remained hemodynamically stable throughout the remainder of her stay. Discussed home care and follow-up care she verbalized understanding. This text was generated using [employer] system, please disregard any oddities of phrase or misspellings. Medical Records Medical records reviewed: Yes I reviewed the patient's medical records. Imaging Data Radiologic Study: Imaging: CT Scan Radiologist's impression: Liver: Hepatic steatosis. Bones/joints: Unremarkable for age. No acute fracture. Soft tissues: Unremarkable. IMPRESSION: 1. No acute findings. No obstructing pulmonary emboli. 2. Additional findings as discussed above. Thank you for allowing us to participate in the care of your patient. Dictated and Authenticated by: Mary Lewis MD Lab Data Lab results reviewed: Yes I reviewed the patient's lab results. Labs: Laboratory Tests Range/Units 03/26/25 03/26/25 03/26/25 11:17 12:18 14:15 WBC (4.4-10.8) 10^3/uL 9.13 RBC (3.93-5.22) 10^6/uL 4.85 Hgb (11.2-15.7) g/dL 14.6 Hct (36.0-46.0) % 42.6 MCV (80-95) fL 88 MCH (27.0-33.0) pg 30.1 MCHC (32.0-36.0) % 34.3 RDW (11.7-14.6) % 12.4 Plt Count (130-400) 10^3/uL 348 MPV (8.0-11.0) fL 8.9 Immature Gran % % 0.5 Neutrophils % % 57.9 Lymphocytes % % 32.0 Monocytes % % 6.2 Eosinophils % % 2.5 Basophils % % 0.9 Nucleated RBC % (0.0-0.3) % 0.0 Absolute Neutrophils (1.2-6.7) 10^3/uL 5.28 Absolute Lymphocytes (1.2-3.4) 10^3/uL 2.92 Absolute Monocytes (0.1-0.8) 10^3/uL 0.57 Absolute Eosinophils (0.0-0.7) 10^3/uL 0.23 Absolute Basophils (0.0-0.2) 10^3/uL 0.08 PT (9.1-11.1) sec 10.1 INR (0.9-1.1) 1.0 Sodium (136-145) mmol/L 140 Potassium (3.5-5.1) mmol/L 3.9 Chloride (98-107) mmol/L 106 Carbon Dioxide (21.0-32.0) mmol/L 21.2 Anion Gap (3-11) mmol/L 12.8 H BUN (7-18) mg/dL 8 Creatinine (0.55-1.02) mg/dL 0.9 Est GFR (CKD-EPI 2020) (mL/min/1.73m2) 82.37 Glucose (74-106) mg/dL 115 H Calcium (8.5-10.1) mg/dL 9.2 Magnesium (1.8-2.4) mg/dL 2.0 Total Bilirubin (0.2-1.0) mg/dL 0.8 AST (15-37) U/L 11 L ALT (14-59) U/L 28 Alkaline Phosphatase (46-116) U/L 47 Troponin I (<or=51) ng/L 4 < 4 Cancelled NT-Pro-B Natriuret Pep (<300) pg/mL 18 Total Protein (6.4-8.2) g/dL 8.3 H Albumin (3.4-5.0) g/dL 4.4 Lipase (<78) U/L 26 PFSH All Active Problems Chest pain not due to acute coronary syndrome (Acute) Chronic pain (Chronic) Cervical radiculitis (Acute) Abnormal Pap smear of cervix (Acute 01/04/14) 11/2013 ASCUS + HPV 12/2013 colpo bx - no dsyplasia. f/u pap and HPV one yr Constipation (Acute 01/04/14) Depression (Acute 01/04/14) Headache (Acute 01/04/14) Tobacco use (Acute 01/04/14) Medical History Attention and concentration deficit Left upper quadrant pain Rib pain SOB (shortness of breath) Fatigue Breast pain, left Cough Flank pain Hematuria Urine incontinence Elevated blood pressure reading Left shoulder pain Chronic headache History of substance abuse Anxiety Chest wall pain Mass of chest wall Attention disturbance Bipolar 1 disorder Vitamin D deficiency Interstitial cystitis Overweight Hyperlipidemia Generalized anxiety disorder severe PTSD (post-traumatic stress disorder) Hx of screening mammography Chronic fatigue Fibromyalgia Arthralgia Costochondritis Former smoker Dyspnea on exertion Constipation Hypertension Tobacco use Abnormal Pap smear 11/2013 ASCUS + HPV. 12/2013 Colpo directed bx. neg dysplasia. recommended cotesting 1yr Headache Depression has been receiving meds from PCP. Planning to enter counseling. Surgical History H/O: hysterectomy Ligation of fallopian tube Family History Father , At age 61 from CHF Diabetes Heart disease Hyperlipidemia Mental disorder CHF (congestive heart failure) Hypertension Asthma Substance abuse Grandmother Diabetes Sister Mental disorder Back pain Hypertension Asthma Substance use disorder Maternal Grandfather Diabetes Cancer Aunt Alcoholic Uncle Alcoholic Social History Smoking/Tobacco Use Status: Current every day Tobacco Type: e-cigarettes Smoking risk assessment performed?: Yes Alcohol Intake: never Drug use: Never Substance use type: marijuana Do you feel safe at home: Yes Do you feel safe in your relationship?: Yes
[2025-03-26] MEDS: Omnipaque 350 MG/ML 100 ML BTL IJ (11:26)
[2025-03-26 11:30] LABS: Abs Immature Grans 0.05 10^3/uL (0.0-0.06); HCT 42.6 % (36.0-46.0); HGB 14.6 g/dL (11.2-15.7); Immature Grans % 0.5 %; MCH 30.1 pg (27.0-33.0); MCHC 34.3 % (32.0-36.0); MCV 88 fL (80-95); MPV 8.9 fL (8.0-11.0); Platelet Count 348 10^3/uL (130-400); RBC 4.85 10^6/uL (3.93-5.22); RDW 12.4 % (11.7-14.6); RDW-SD 39.7 fL; WBC 9.13 10^3/uL (4.4-10.8)
[2025-03-26] MEDS: Aspirin 81 MG CHEW 324 MG CH (11:35)
[2025-03-26 11:41] LABS: INR 1.0 (0.9-1.1); Prothrombin Time 10.1 sec (9.1-11.1)
[2025-03-26] MEDS: Normal Saline 500 ML IV (11:52)
[2025-03-26 11:53] LABS: ALT 28 U/L (14-59); AST 11 U/L (15-37); Albumin 4.4 g/dL (3.4-5.0); Alkaline Phosphatase 47 U/L (46-116); Anion Gap 12.8 mmol/L (3-11); BUN 8 mg/dL (7-18); Bilirubin, Total 0.8 mg/dL (0.2-1.0); CO2 21.2 mmol/L (21.0-32.0); Calcium 9.2 mg/dL (8.5-10.1); Chloride 106 mmol/L (98-107); Estimated GFR 82.37 (mL/min/1.73m2); Glucose 115 mg/dL (74-106); Lipase 26 U/L (<78); Magnesium 2.0 mg/dL (1.8-2.4); NT-proBNP 18 pg/mL (<300); Potassium 3.9 mmol/L (3.5-5.1); Sodium 140 mmol/L (136-145); Total Protein 8.3 g/dL (6.4-8.2); Troponin I 4 ng/L (<or=51)
[2025-03-26 12:41] LABS: Troponin I < 4 ng/L (<or=51)
--- NOTE | 2025-03-26 14:22 | DI.VRAD_ITS ---
PROCEDURE INFORMATION: Exam: CTA Chest With Contrast Exam date and time: 03/26/2025 11:34 AM Age: 40 years old Clinical indication: Pain; Chest pressure TECHNIQUE: Imaging protocol: Computed tomographic angiography of the chest with contrast. Exam focused on the arteries. 3D rendering (Not supervised by radiologist): MIP and/or 3D reconstructed images were created by the technologist. Contrast material: OMNI 350; Contrast volume: 100 ml; Contrast route: INTRAVENOUS (IV); COMPARISON: CR XR CHEST 2V PA LATERAL 11/22/2024 17:50 FINDINGS: Limitations: Streak artifact. Pulmonary arteries: There is streak artifact through the pulmonary arteries. There is no occluding filling defect. The defects seen on the axial sequences correspond to areas of branching vessels on the coronal and sagittal sequences. No obstructing pulmonary emboli. Aorta: Unremarkable. No aortic aneurysm. No aortic dissection. Other arteries: No atherosclerotic plaque. Lungs: Unremarkable. No consolidation. No masses. Azygos lobe. Pleural spaces: Unremarkable. No pneumothorax. No pleural effusion. Heart: Unremarkable. No cardiomegaly. No pericardial effusion. Coronary arteries: No calcified coronary arteries. Lymph nodes: Unremarkable. No enlarged lymph nodes. Diaphragm: Small hiatal hernia. Liver: Hepatic steatosis. Bones/joints: Unremarkable for age. No acute fracture. Soft tissues: Unremarkable. IMPRESSION: 1. No acute findings. No obstructing pulmonary emboli. 2. Additional findings as discussed above. Dictated and Authenticated by: Mary Lewis MD. Orderin Toyin Fernando MD
[2025-03-26] MEDS: Ketorolac 10 MG TAB PO (14:54)
== END 2025-03-26 14:58 | disposition home or self-care (01) ==
PROVIDERS: Emergency Provider Registered Nurse Emergency; PCP Nurse Practitioner Family
DX: R07.9 Chest pain, unspecified (principal); R42 Dizziness and giddiness; R03.0 Elevated blood-pressure reading, without diagnosis of hypertension
CPT/HCPCS: 36415; 71275; 80053; 83690; 93005; 96360; 96361; 99284; 83735; 83880; 84484; 85025; 85610; 93010; J3490

== ENCOUNTER 2025-03-31 04:23 | Outpatient (CLI) | payer MEDICAID, SELFPAY ==
--- NOTE | 2025-03-31 07:00 | DI.MRI_ITS ---
Exam(s) MR CERVICAL SPINE WO EXAM: MR CERVICAL SPINE WO CLINICAL HISTORY: Pain down left upper extremity and chest,CERVICAL RADICULITIS,M54.12 TECHNIQUE: Multiplanar multisequence MRI of the cervical spine was performed without intravenous contrast. COMPARISON: CR CERV SP.WITH OBL OR FLEX/EXT from 09/14/2013 CT CTA BRAIN AND NECK from 12/30/2017 FINDINGS: BONES: Vertebral body heights are maintained. Intervertebral disc spaces are normal. Alignment is normal. Bone marrow signal intensity is within normal limits. CERVICAL CORD: Craniovertebral junction is unremarkable. The cervical cord is normal size and signal intensity. SOFT TISSUES: Unremarkable. C2-3: There is a small central disc herniation. No significant central spinal canal or neural foraminal stenosis. C3-4: There is a small right paracentral disc herniation. No significant central spinal canal or neural foraminal stenosis C4-5: No disc herniation or bulge is identified. No significant central spinal canal or neural foraminal stenosis C5-6: No disc herniation or bulge is identified. No significant central spinal canal or neural foraminal stenosis C6-7: No disc herniation or bulge is identified. No significant central spinal canal or neural foraminal stenosis C7-T1: No disc herniation or bulge is identified. No significant central spinal canal or neural foraminal stenosis IMPRESSION: 1. Very small disc herniations at C2-3 and C3-C4. 2. There is no significant central spinal canal or neural foraminal stenosis present. 3. Normal appearance of the cervical spinal cord. DATA REPOSITORY:
== END 2025-03-31 04:43 ==
PROVIDERS: PCP Nurse Practitioner Family; Visit Provider Anesthesiology Pain Medicine
DX: M54.12 Radiculopathy, cervical region (principal); R07.9 Chest pain, unspecified; R00.0 Tachycardia, unspecified; M50.21 Other cervical disc displacement, high cervical region
CPT/HCPCS: 72141

== ENCOUNTER 2025-04-14 09:18 | Outpatient (CLI) | payer MEDICAID, SELFPAY ==
--- NOTE | 2025-04-14 09:20 | DI.RAD_ITS ---
Exam(s) XR SHOULDER LT COMPLETE 2+V EXAM: XR SHOULDER LT COMPLETE 2+V CLINICAL HISTORY: pain, lt shoulder M25.512. TECHNIQUE: 2D digital imaging was performed of the left shoulder. Four images were obtained. AP, Grashey, Y-view and axillary views were obtained. COMPARISON: CR,XR XR SHOULDER LT COMPLETE 2+V from 05/23/2019 FINDINGS: BONES: No acute fracture is present. No bony destructive lesion is seen. JOINTS: No dislocation present. SOFT TISSUE: Normal. IMPRESSION: Unremarkable radiographs of the left shoulder. DATA REPOSITORY: RADIATION DOSE DELIVERED:
== END 2025-04-14 09:38 ==
LOC: DI 09:19
PROVIDERS: PCP Nurse Practitioner Family; Visit Provider Anesthesiology Pain Medicine
DX: M25.512 Pain in left shoulder (principal)
CPT/HCPCS: 73030